=== PATIENT | male | born 1970 | race Caucasian/White ===

== ENCOUNTER 2018-10-28 22:14 | Emergency (ER) | payer OTHER, SELFPAY ==
[2018-10-28 22:15] VITALS: BP 141/83; PULSE 105; RESP 16; TEMP 36.6; O2SAT 97; BMI 28.8
--- NOTE | 2018-10-28 23:03 | ED.DCSUM_ITS ---
- ER Visit Summary Date of Service: 10/28/18 Chief Complaint: Back pain History of Present Illness: The patient is a 48 M who presents with back pain. He has a history of prior similar symptoms. He reports a history of 2 slipped disks. He states his back pain is been increased today. He denies any fall injury increased activity. His pain is similar in character and location to previously but is worse. He states sometimes he feels like his left leg is giving out. He does have radiation into bilateral buttocks and down to the foot on the left side. He complains of some numbness and tingling in the left toes he has a history of prior similar symptoms only though he states this does seem to be getting worse he denies any fevers abdominal pain urinary retention or fecal incontinence. He has had prior epidural injections but no other prior back surgeries. Physical Examination: Heart rate 105 vitals otherwise normal No distress Heart regular rhythm slightly tachycardic Lungs are clear Abdomen soft Normal inspection of the back nontender Negative straight leg raise supine bilaterally Normal strength and sensation of the lower extremities normal sensation to light touch easily palpable and symmetric dorsalis pedis pulses flexion, plantarflexion, extensor hallucis longus Test Results: Not indicated Emergency Department Course and Treatment: Patient presents with lumbar radiculopathy. He has normal strength and sensation of this time. I do not see any signs or symptoms of acute surgical pathology such as cauda equina syndrome or epidural abscess. I do not see an indication for emergent imaging. We will treat supportively with prednisone and he was also given a prescription for Percocet. He was advised on supportive care. He understands to return for new or worsening symptoms and will otherwise follow-up as an outpatient. Treatment Plan: [] Disposition: Discharge Impression: Lumbar radiculopathy This note was generated with [employer] dictation software. It may contain incorrect words, spelling, and punctuation that were not noted in review of the chart prior to signing ED Disposition - Plan for ED Patient: Referrals: Devika Cabrera MD [Primary Care Provider] -
--- NOTE | 2018-10-28 23:06 | ED.DEP ---
ED Disposition - Plan for ED Patient: Instructions: ED Sciatica Prescriptions: Oxycodone HCl/Acetaminophen [Percocet 5/325] 1 tab PO Q6H PRN PRN 3 Days #12 tab PRN Reason: Pain predniSONE tablet 60 mg PO DAILY #15 tab Referrals: Devika Cabrera MD [Primary Care Provider] -
[2018-10-28] MEDS: oxyCODONE 5 MG Tablet PO (23:18)
== END 2018-10-28 23:21 | disposition home or self-care (01) ==
LOC: ED 23:05
PROVIDERS: Emergency Provider Emergency Medicine; Family Provider Internal Medicine; PCP Internal Medicine
DX: M54.16 Radiculopathy, lumbar region (principal); G40.909 Epilepsy, unspecified, not intractable, without status epilepticus; Z72.0 Tobacco use; Z79.899 Other long term (current) drug therapy
CPT/HCPCS: 99283

== ENCOUNTER 2018-11-12 11:05 | Emergency (ER) | payer OTHER, SELFPAY ==
[2018-11-12 11:05] VITALS: BP 161/90; PULSE 94; RESP 16; TEMP 36.6; O2SAT 98; BMI 29.0
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
[2018-11-12] MEDS: morphine 10 MG/ML Syringe IM (11:57)
[2018-11-12] MEDS: diazePAM 5 MG Tablet PO (11:57)
[2018-11-12] MEDS: predniSONE 20 MG Tablet 60 MG PO (11:58)
--- NOTE | 2018-11-12 13:25 | MRI_ITS ---
STUDY: MRI LUMBAR SPINE WITHOUT CONTRAST REASON FOR EXAM: Male, 48 years old. Low back pain with involvement of both lower extremities TECHNIQUE: Standardized fat and water weighted pulse sequences were obtained in the sagittal and axial planes. COMPARISON: None FINDINGS: T12-L1: Normal endplates. Normal disc height, hydration and morphology. Normal bilateral facet joints. Normal central canal and bilateral lateral recesses. Normal bilateral intervertebral neural foramina. Normal lumbar lordosis. There is no substantial scoliosis. Normal conus medullaris that terminates at L1 L1-2: Minor endplate spurring.. Normal disc height, hydration and morphology. Normal bilateral facet joints. Normal central canal and bilateral lateral recesses. Normal bilateral intervertebral neural foramina. L2-3: Normal endplates. Normal disc height, hydration and small broad-based central/right paracentral disc protrusion. Normal bilateral facet joints. Normal central canal and bilateral lateral recesses. Normal bilateral intervertebral neural foramina. L3-4: Normal endplates narrowed disc space with desiccation of the disc and minor annular bulge in association with prominent broad-based central/right paracentral disc extrusion with inferior migration of disc fragment.. Normal facet joints. Mild to moderate narrowing of the central canal. Moderate to severe bilateral recess and right subarticular stenosis. Mild bilateral neural foraminal encroachment Mild bilateral neural foraminal encroachment. L4-5: Normal endplates. Normal disc height, desiccation and tiny central disc protrusion. Normal bilateral facet joints. Normal central canal and bilateral recesses. Normal bilateral neuroforamina. L5-S1: Normal endplates. Normal disc height, hydration and morphology. Normal bilateral facet joints. Normal central canal and bilateral lateral recesses. Normal bilateral intervertebral neural foramina. Normal visualized sacral ala. Normal visualized paraspinous soft tissue structures. MRI/Spine Lumbar (Routine) IMPRESSION: No evidence for acute fracture or subluxation. Moderate to severe spinal stenosis greater on the right at L3-4 secondary to large broad-based central/right paracentral disc extrusion with inferior migration of disc fragment Small broad-based central/right paracentral disc protrusion at L2-3 without significant spinal stenosis Tiny central disc protrusion at L5-S1 without spinal stenosis Electronically Signed: Jeff Adams MD at 16:26 EST , Service support ,
[2018-11-12] MEDS: Morphine 4 MG/ML Syringe IV (14:00)
[2018-11-12] MEDS: Ketorolac 30 MG/ML Syringe IV (14:00)
[2018-11-12 14:02] LABS: Absolute Neutrophil Count 12.5 X10^3/uL (2.0-7.7); Basophil# 0.01 X10^3/uL; Basophil% 0.1 % (0-1); Eosinophil# 0.04 X10^3/uL; Eosinophils% 0.2 % (0-5); Hemoglobin 15.3 g/dl (13.0-16.5); Lymphocyte % 19.4 % (19-41); Mean Corp Hgb Conc 32.6 g/gl (32-36); Mean Corpuscular Hgb 32.6 pg (27.0-32.0); Mean Corpuscular Volume 100.2 fL (80-94); Monocyte# 0.65 X10^3/uL; Monocyte% 3.9 % (0-10); Neutrophil # 12.51 X10^3/uL (2.7-7.7); Neutrophil % 75.8 % (47-70); Platelet Count 241 K/mm3 (150-450); RBC Distribution Width CV 14.3 % (11.6-14.6); RBC Distribution Width SD 52.2 fl (35.1-43.9); Red Blood Count 4.69 M/mm3 (4.6-6.2); White Blood Count 16.5 K/mm3 (4.4-11.0)
[2018-11-12 14:05] LABS: POSITIVE COUNT NO; POSITIVE DIFFERENTIAL NO; POSITIVE MORPHOLOGY NO
[2018-11-12 14:12] LABS: Anion Gap 8 (5-15); BUN 22 mg/dL (7-18); BUN/Creat Ratio 20.2 RATIO (10-20); Calcium,Total 8.9 mg/dL (8.5-10.1); Chloride 105 mmol/L (98-107); Creatinine, Serum 1.09 mg/dL (0.70-1.30); EST Glomerular Filtration Rate 77 mL/min (>60); Est Glom Filt Rate - Afr Amer 93 mL/min (>60); Estimated Creatinine Clearance 93.66 ml/min; Glucose 96 mg/dL (74-106); Potassium 4.1 mmol/L (3.5-5.1); Sodium Level 144 mmol/L (136-145)
[2018-11-12 16:09] VITALS: BP 164/79; PULSE 70; RESP 16; O2SAT 97
[2018-11-12] MEDS: HYDROmorphone 1 MG/ML Syringe IV (16:32)
[2018-11-12 17:13] VITALS: BP 176/99
== END 2018-11-12 17:20 | disposition home or self-care (01) ==
PROVIDERS: Emergency Provider Emergency Medicine; Family Provider Internal Medicine; PCP Internal Medicine
DX: M51.16 Intervertebral disc disorders with radiculopathy, lumbar region (principal); G40.909 Epilepsy, unspecified, not intractable, without status epilepticus; Z72.0 Tobacco use; Z88.6 Allergy status to analgesic agent; Z79.899 Other long term (current) drug therapy
CPT/HCPCS: 72148; 80048; 85025; 96372; 96374; 96375; 99283; A4216

== ENCOUNTER → 2019-02-13 09:18 | Outpatient (CLI) | payer OTHER, SELFPAY ==
--- NOTE | 2019-02-13 10:00 | MRI_ITS ---
STUDY: MRI LUMBAR SPINE WITH AND WITHOUT CONTRAST REASON FOR EXAM: Male, 48 years old. LBP, PRIOR MICRODISCECTOMY at L2-L4, November 2018. LEFT hip and quad radiculopathy and numbness. TECHNIQUE: Standardized fat and water weighted pulse sequences were obtained in the sagittal and axial planes. 20 IV Dotarem was administered for the contrast portion of the examination. COMPARISON: 12 November 2018 MRI FINDINGS: T12-L1: Normal endplates. Normal disc height, hydration and morphology. Normal bilateral facet joints. Normal central canal and bilateral lateral recesses. Normal bilateral intervertebral neural foramina. Normal lumbar lordosis. There is no substantial scoliosis. Normal conus medullaris that terminates at the L1/2 level. L1-2: Disc desiccation and dehydration is present with no significant spinal canal narrowing or foraminal narrowing. L2-3: Minimal disc protrusion at this level with mild epidermal lipomatosis resulting in mild spinal canal narrowing at this level without associated foraminal narrowing. L3-4: There is a demonstrated left side disc extrusion extending superiorly causing a moderate to severe lateral recess narrowing without extension into the foramina with no evidence of internal enhancement as seen on axial series 5 image 16. L4-5: The level of L4 is posterior laminectomy changes with expected postsurgical likely scarring enhancement without focal fluid collection. There is noted disc desiccation without significant disc bulge, spinal canal narrowing or foraminal narrowing. L5-S1: Normal endplates. Normal disc height, hydration and morphology. Normal bilateral facet joints. Normal central canal and bilateral lateral recesses. Normal bilateral intervertebral neural foramina. Normal visualized sacral ala. Normal visualized paraspinous soft tissue structures. MRI/Spine Lumbar W/WO Contrast IMPRESSION: 1. L3/4 left paracentral likely disc extrusion extending superiorly (series 5 image 16) resulting in moderate to severe left lateral recess narrowing, clinically correlate for descending L4 left nerve root radiculopathy. 2. Noted posterior laminectomy changes at the level of L4 with expected postsurgical changes without evidence of fluid collection or abscess. Additional degenerative changes as above. Electronically Signed: Vernon Grimes DO at 11:35 EDT , Service support ,
== END ==
PROVIDERS: Family Provider Internal Medicine; PCP Internal Medicine; Referring Provider Orthopaedic Surgery Orthopaedic Surgery of the Spine; Visit Provider Orthopaedic Surgery Orthopaedic Surgery of the Spine
DX: M54.16 Radiculopathy, lumbar region (principal); M51.26 Other intervertebral disc displacement, lumbar region; Z98.890 Other specified postprocedural states
CPT/HCPCS: 72158; A9575

== ENCOUNTER → 2019-10-07 11:05 | Outpatient (CLI) | payer OTHER, SELFPAY ==
[2019-10-01 18:00] LABS: Creatinine, Serum 1.13 mg/dL (0.70-1.30); EST Glomerular Filtration Rate 73 mL/min (>60); Est Glom Filt Rate - Afr Amer 89 mL/min (>60)
--- NOTE | 2019-10-07 11:12 | MRI_ITS ---
STUDY: MRI LUMBAR SPINE WITH AND WITHOUT CONTRAST REASON FOR EXAM: Male, 49 years old. DDD PRIOR LUMBAR SURGERY -- pain low back and left leg x 18 months, surgery lumbar x 2 11/2018 and 04/23/19, pain never improved TECHNIQUE: Standardized fat and water weighted pulse sequences were obtained in the sagittal and axial planes. dotarem 20ml iv was administered for the contrast portion of the examination. COMPARISON: 02/13/2019 FINDINGS: T12-L1: Normal endplates. Normal disc height, hydration and morphology. Normal bilateral facet joints. Normal central canal and bilateral lateral recesses. Normal bilateral intervertebral neural foramina. Normal lumbar lordosis. There is no substantial scoliosis. Normal conus medullaris that terminates at the L1. L1-2: Disc desiccation and loss of disc height but no disc protrusion or spinal stenosis or neural foraminal stenosis. L2-3: No change in a small central disc protrusion which produces mild spinal stenosis but no neural foraminal stenosis. L3-4: Status post posterior decompression. No change in the 2 mm retrolisthesis of L3 on L4 with a mild broad disc protrusion which produces mild spinal stenosis and mild bilateral neural foraminal stenosis. Associated Modic type I endplate changes. L4-5: No change in the mild broad disc protrusion which produces mild spinal stenosis but no neural foraminal stenosis. L5-S1: Normal endplates. Normal disc height, hydration and morphology. Normal bilateral facet joints. Normal central canal and bilateral lateral recesses. Normal bilateral intervertebral neural foramina. Normal visualized sacral ala. Normal visualized paraspinous soft tissue structures. Enhancing scar tissue at the site of posterior decompression at L3/L4 with encasement of the posterior thecal sac but no mass effect or nerve root encasement. However, there is some faint enhancement of the left L3 nerve root. MRI/Spine Lumbar W/WO Contrast IMPRESSION: Postsurgical changes at L3/L4 with some enhancing scar tissue posterior to the thecal sac inferiorly enhancement of the left L3 nerve root. However, no severe spinal stenosis or neural foraminal stenosis. Electronically Signed: Delon Tao MD at 16:49 EST Tel , Service support ,
== END ==
PROVIDERS: Family Provider Internal Medicine; PCP Internal Medicine; Referring Provider Orthopaedic Surgery; Visit Provider Orthopaedic Surgery
DX: N28.9 Disorder of kidney and ureter, unspecified (principal)
CPT/HCPCS: 36415; 72158; 82565; A9575

== ENCOUNTER 2020-01-24 09:17 | Emergency (ER) | payer OTHER, SELFPAY ==
[2020-01-24 09:18] VITALS: BP 159/93; PULSE 86; RESP 16; TEMP 36.7; BMI 29.0
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
[2020-01-24] MEDS: Diphth,Pertuss(Acell),Tet Vac 0.5 ML Vial IM (11:30)
[2020-01-24] MEDS: Cephalexin 250 MG Capsule 500 MG PO (11:36)
== END 2020-01-24 11:59 | disposition home or self-care (01) ==
LOC: ED 11:50
PROVIDERS: Emergency Provider Emergency Medicine; PCP Internal Medicine
DX: T23.292A Burn of second degree of multiple sites of left wrist and hand, initial encounter (principal); T20.29XA Burn of second degree of multiple sites of head, face, and neck, initial encounter; T24.232A Burn of second degree of left lower leg, initial encounter; T24.231A Burn of second degree of right lower leg, initial encounter; T31.0 Burns involving less than 10% of body surface; W40.1XXA Explosion of explosive gases, initial encounter; Y93.89 Activity, other specified; Y92.9 Unspecified place or not applicable; Z72.0 Tobacco use
CPT/HCPCS: 90471; 90715; 99283

== ENCOUNTER 2020-06-01 19:31 | Inpatient (IN) | payer OTHER, SELFPAY ==
[2020-06-01 19:32] VITALS: BP 115/73; PULSE 86; RESP 18; TEMP 36.4; O2SAT 96; BMI 29.0
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
[2020-06-01 20:04] LABS: Absolute Lymphocyte Count 1.71 X10^3/uL (0.83-4.51); Absolute Neutrophil Count 4.5 X10^3/uL (2.0-7.7); Basophil# 0.03 X10^3/uL; Basophil% 0.4 % (0-1); Eosinophil# 0.17 X10^3/uL; Eosinophils% 2.4 % (0-5); Hematocrit 40.8 % (40-54); Hemoglobin 13.9 g/dL (13.0-16.5); Lymphocyte # 1.71 X10^3/ul (4.0); Lymphocyte % 23.9 % (19-41); Mean Corp Hgb Conc 34.1 g/dL (32-36); Mean Corpuscular Hgb 33.3 pg (27.0-32.0); Mean Corpuscular Volume 97.8 fL (80-94); Mean Platelet Vol. 9.8 fl (6.2-12.0); Monocyte# 0.69 X10^3/uL; Monocyte% 9.7 % (0-10); NRBC Flagged by Analyzer 0 % (0-5); Neutrophil # 4.52 X10^3/uL (2.7-7.7); Neutrophil % 63.3 % (47-70); Platelet Count 272 K/mm3 (150-450); RBC Distribution Width CV 12.9 % (11.6-14.6); Red Blood Count 4.17 M/mm3 (4.6-6.2); White Blood Count 7.1 K/mm3 (4.4-11.0)
[2020-06-01 20:20] LABS: Anion Gap 5 (5-15); BUN 15 mg/dL (7-18); BUN/Creat Ratio 17.3 RATIO (10-20); Calcium,Total 9.1 mg/dL (8.5-10.1); Chloride 112 mmol/L (98-107); Creatinine, Serum 0.87 mg/dL (0.70-1.30); EST Glomerular Filtration Rate 99 mL/min (>60); Est Glom Filt Rate - Afr Amer 120 mL/min (>60); Glucose 117 mg/dL (74-106); Potassium 3.7 mmol/L (3.5-5.1); Sodium Level 144 mmol/L (136-145); Uric Acid 6.6 mg/dL (3.5-7.2)
[2020-06-01 20:48] LABS: Lactic Acid 0.5 mmol/L (0.4-1.9)
[2020-06-01 21:32] VITALS: BP 134/74; PULSE 71; RESP 17; O2SAT 97
--- NOTE | 2020-06-01 22:00 | PCM.HP.STD ---
Problem List (1) Cellulitis Status: Acute Qualifiers: Site of cellulitis: extremity Site of cellulitis of extremity: lower extremity Laterality: right Qualified Code(s): L03.115 - Cellulitis of right lower limb (2) Laceration of right lower extremity Status: Acute Qualifiers: Encounter type: subsequent encounter Qualified Code(s): S81.811D - Laceration without foreign body, right lower leg, subsequent encounter (3) Seizure disorder Status: Chronic (4) Tobacco use Status: Chronic (5) Asthma Status: Chronic Qualifiers: Asthma severity: unspecified severity Asthma persistence: unspecified Asthma complication type: unspecified Qualified Code(s): J45.909 - Unspecified asthma, uncomplicated History of Present Illness Date of Admission: 06/01/20 Chief Complaint: RLE wound, pain, erythema. The patient is a 50 y/o M w/ PMHx: Tobacco use, Obesity, Asthma not on regimen, Seizure disorder who presents to the [facility] ED on 06/01/20 with history of fall on 05/21/20 slipping on his boat and striking a piece of metal on the ladder with a laceration of the right anterior tibia with urgent care evaluation, placed on abx (keflex) at that time with ongoing self administration of bacitracin ointment additionally with now onset over the last 48 hours worsening discomfort described as a sharp throbbing aching, worse with movement of the leg from resting to lowered position specifically, rated 8/10 in severity with ongoing mild brown drainage from the wound but new onset erythema extending from R ankle-foot medially to RLE distal to wound prompting ED presentation. He denies any associated fever or chills. In the ED work-up included T 97.6, heart rate 86, BP 115/73, respiratory rate 18, 96% on room air, CBC with WBC 7.1, hemoglobin 13.9, platelet 272 without market shift, BMP with glucose 117 otherwise unremarkable, uric acid 6.6, LA 0.5, wound Cx pending per ED, blood culture x2 requested per ED. in the ED patient administered Unasyn, normal saline, vancomycin. Past Medical History Past Medical History (Chronic Problems): Chronic Problems Seizure disorder (Chronic) Tobacco use (Chronic) Asthma (Chronic) Allergies No Known Allergies Allergy (Verified 06/01/20 19:36) Home Medications: Ambulatory Orders Medication Instructions Recorded Divalproex (ER) [Depakote ER] 250 mg PO 5X/DAY 10/28/18 Cephalexin [Keflex] 500 mg PO Q6 #40 cap 01/24/20 Surgical History: - - Lumbar back surgery x2. Psychiatric History: No pertinent psych hx Lives: Spouse/ Significant Other Smoking Status: Current some day smoker - Patient with ongoing 1/2 pack/day cigarette tobacco usage. Tobacco Use: Cigarettes Alcohol: Occasional Drugs: None - *Family History Maternal History Items: Cancer - Patient with maternal family history of breast cancer. Paternal History Items: - - Patient denies any market paternal family history including heart disease, diabetes, cancer. Review of Systems Constitutional: Reports: Fatigue. Denies: Anorexia, Chills, Fever, Malaise, Weakness, Weight Change HEENT: Denies: Head Aches, Sinus Congestion, Sinus Drainage Cardiovascular: Denies: Chest Pain, Palpitations Respiratory: Denies: Cough, Shortness of breath at rest, Sputum production Gastrointestinal: Denies: Abdominal Pain, Nausea, Vomiting Genitourinary: Denies: Dysuria Musculoskeletal: Reports: Joint Pain, Joint stiffness, Joint swelling, Joint Tenderness, Leg Pain Skin: Reports: Skin Changes, Wounds. Denies: Rash Neurological: Reports: Seizures. Denies: Focal weakness, Numbness, Tingling Psychiatric: Denies: Anxiety, Depression, Homicidal Ideations, Suicidal Ideations Hematologic/ Lymphatic: Denies: Easy Bruising, Easy Bleeding VTE Information - Inpt Only VTE Present on Admission: No VTE Mechan Device Prophylaxis: SCD's VTE Pharm Prophylaxis ordered?: Yes Patient Problems: Active and Suspected Problems Cellulitis (Acute) Laceration of right lower extremity (Acute) Subjective: Patient seated upright in the ED bed, mildly fatigued otherwise no acute distress. Objective: Physical Examination: General: awake, alert, oriented x 3 and cooperative, seated upright in the ED bed in no apparent distress. Skin: normal color, turgor, no icterus, cyanosis except noted right lower extremity anterior rock laceration, mild serosanguineous brown drainage noted, no foul odor, no specific periwound erythema but erythema on the inner aspect of the right lower extremity specifically near the ankle with some edema to the region with redness extending upward just distal to the wound medially with tenderness palpation, increased warmth to touch compared to left lower extremity. HEENT: AT/NC, EOMI, PERRLA, mildly dry MM, no carotid bruits or JVD noted. Lungs: CTA bilaterally, moderate effort, mild decrease BL bases, no rales, ronchi or wheezing. Heart: Regular rate and rhythm; no gallop, rub audible. Abdomen: soft, NTTP, ND, normal BS, no HSM. Extremities: no cyanosis, clubbing, see skin, mild ankle to distal rock edema, not pitting. Neurological: patient awake, alert, oriented x 3; cognitive function intact; pupils equally reactive to light and accomodation; cranial nerves II-XII grossly normal, moving all 4 extremities, no focal deficits, strength moderately global decrease secondary to acute complaints. Psychiatric: affect appears fatigued otherwise normal, no acute evidence of depressive or anxiety feelings. - Physical Exam Vitals/I&O's: Vital Signs Temp Pulse Resp BP Pulse Ox 97.6 F L 86 18 115/73 96 06/01/20 19:32 06/01/20 19:32 06/01/20 19:32 06/01/20 19:32 06/01/20 19:32 Oxygen Delivery Method Room Air Weight: 220 lb Body Mass Index (BMI) 29.0 Intake and Output for Last 24 Hours 05/30/20 05/31/20 06/01/20 23:59 23:59 23:59 Intake Total 112 / 112 Balance 112 / 112 Laboratory Results 06/01/20 19:50: WBC 7.1, RBC 4.17 L, Hgb 13.9, Hct 40.8, MCV 97.8 H, MCH 33.3 H, MCHC 34.1, RDW Std Deviation 46.0 H, RDW Coeff of Yodit 12.9, Plt Count 272, MPV 9.8, Immature Gran % (Auto) 0.300, Neut % (Auto) 63.3, Lymph % (Auto) 23.9, [place] % (Auto) 9.7, Eos % (Auto) 2.4, Baso % (Auto) 0.4, Absolute Neuts (auto) 4.5, Absolute Lymphs (auto) 1.71, Nucleated RBC % 0 06/01/20 19:50: Sodium 144, Potassium 3.7, Chloride 112 H, Carbon Dioxide 27.0, Anion Gap 5, BUN 15, Creatinine 0.87, Estim Creat Clear Calc 114.80, Est GFR (MDRD) Af Amer 120, Est GFR (MDRD) Non-Af 99, BUN/Creatinine Ratio 17.3, Glucose 117 H, Uric Acid 6.6, Calcium 9.1 06/01/20 20:04: Lactic Acid 0.5 Current Medications Vancomycin HCl 1,500 mg/ (Sodium Chloride) 530 mls @ 250 mls/hr IV X1 ONE Stop: 06/01/20 22:07 Last Admin: 06/01/20 20:14 Dose: 250 mls/hr Documented by: Sodium Chloride () 250 mls @ 15 mls/hr IV .[id number] PRN PRN Reason: Saline Flush Last Admin: 06/01/20 20:19 Dose: 15 mls/hr Documented by: Sodium Chloride () 250 mls @ 15 mls/hr IV .[id number] PRN PRN Reason: Additional IVPB Infusion Last Admin: 06/01/20 20:19 Dose: 15 mls/hr Documented by: Assessment/Plan All Active Problems Cellulitis (Acute) Laceration of right lower extremity (Acute) The patient is a 50 y/o M w/ PMHx: Tobacco use, Obesity, Asthma not on regimen, Seizure disorder who presents to the [facility] ED on 06/01/20 with history of fall on 05/21/20 slipping on his boat and striking a piece of metal on the ladder with a laceration of the right anterior tibia with now onset over the last 48 hours worsening discomfort described as a sharp throbbing aching, worse with movement of the leg from resting to lowered position specifically, ongoing brown drainage from the wound but new onset erythema extending from R ankle-foot medially to RLE distal to wound. 1. Right lower extremity extremity Cellulitis with Recent Anterior Tibial Wound, Failed outpatient management/antibiotic therapy: Will admit to [facility], given history and mechanism of injury will maintain on Unasyn therapy as well as vancomycin with de-escalation off of MRSA screen negative and may consider further de-escalation pending wound culture, will request addition of MRSA wound PCR to ED initiated wound Cx, plan repeat CBC in AM, continue affected extremity elevation above heart when seated and in bed, monitor erythema outline with VS checks, obtain duplex ultrasound. 2. Seizure disorder: We will continue patient home Depakote regimen. 3. Tobacco Abuse: Encouraged cessation, inpatient consultation per RT, NR if desired. 4. Chronic asthma: Not on regimen, encouraged tobacco cessation, PRN albuterol if necessary, I-S. 5. DVT prophylaxis: SCDs if able to tolerate BL, Lovenox. Inpatient E&M: 05222 Init Hosp L3
[2020-06-01 22:19] VITALS: BP 148/88; PULSE 74; RESP 17; TEMP 36.7; O2SAT 98
[2020-06-01 23:20] VITALS: BP 142/75; PULSE 80; RESP 16; TEMP 37.5; O2SAT 96
--- NOTE | 2020-06-01 23:29 | VDLE_ITS ---
Reason For Study: Swelling RIGHT GSV is normal. CFV is compressible, spontaneous, phasic, competent and demonstrates normal augmentation. FV is compressible, spontaneous, phasic, competent and demonstrates normal augmentation. POP V is compressible, spontaneous, phasic, competent and demonstrates normal augmentation. T/P Trunk is compressible. PTV is compressible. RT PerV is compressible. Procedure Exam performed portable in patient room. A preliminary report was called and/or faxed to [facility]. Interpretation Summary There is no evidence of right lower extremity deep vein thrombosis. Right great saphenous vein appears patent and compressible segmentally. Ordering Physician: Hillary Freitas Referring Physician: Devika Cabrera M.D. Performed By: Jennifer Kauffman RVT
[2020-06-01 23:34] VITALS: BMI 27.6; BMI 29.0
[2020-06-01 23:53] LABS: Magnesium 2.3 mg/dL (1.6-2.6)
[2020-06-02] VITALS (7 sets, daily range): BP systolic 127–131; BP diastolic 61–83; PULSE 60–71; RESP 14–18; TEMP 36.4–36.8; O2SAT 95–99
--- NOTE | 2020-06-02 00:03 | PCM.RX.CS ---
Consult Pharmacy has been consulted to manage selected antiobiotic: Vancomycin Type of Consult: New start Suspected Infection: Skin/Soft tissue Labs: Sodium 144 mmol/L (136-145) 06/01/20 19:50 Potassium 3.7 mmol/L (3.5-5.1) 06/01/20 19:50 Chloride 112 mmol/L (98-107) H 06/01/20 19:50 Carbon Dioxide 27.0 mmol/L (21.0-32.0) 06/01/20 19:50 Anion Gap 5 (5-15) 06/01/20 19:50 BUN 15 mg/dL (7-18) 06/01/20 19:50 Creatinine 0.87 mg/dL (0.70-1.30) 06/01/20 19:50 Est GFR (MDRD) Af Amer 120 mL/min (>60) 06/01/20 19:50 Est GFR (MDRD) Non-Af 99 mL/min (>60) 06/01/20 19:50 BUN/Creatinine Ratio 17.3 RATIO (10-20) 06/01/20 19:50 Glucose 117 mg/dL (74-106) H 06/01/20 19:50 Weight used for dosin kg Estimated Creatinine Clearance: 114.8 Goal Trough: 10-15 mcg/mL Pharmacy Plan for Drug Dosing: Pharmacy Service will continue to monitor and adjust dosing as required. Medications Vancomycin HCl 1,500 mg/ (Sodium Chloride) 530 mls @ 250 mls/hr IV Q12H AFSHIN Discontinued Medications Vancomycin HCl 1,500 mg/ (Sodium Chloride) 530 mls @ 250 mls/hr IV X1 ONE Stop: 06/01/20 22:07 Last Admin: 06/01/20 22:22 Dose: Infused Documented by: Follow-Up Labs: Trough Vancomycin Labs to be done on [date and time ordered]: 06/03 @ 0940
[2020-06-02] MEDS: 0.9% Normal Saline 1,000 ML 100 ML IV ×2 (00:17→14:33)
[2020-06-02] MEDS: Divalproex Sodium 250 MG Tablet 500 MG PO ×2 (00:28→20:45)
[2020-06-02 03:03] LABS: M R Staph aureus DNA By PCR Negative (Negative); Probe Check PASS; Specimen Processing Control PASS; Staph aureus DNA By PCR NEGATIVE (Negative)
[2020-06-02 06:22] LABS: Absolute Lymphocyte Count 2.26 X10^3/uL (0.83-4.51); Absolute Neutrophil Count 3.3 X10^3/uL (2.0-7.7); Basophil# 0.05 X10^3/uL; Basophil% 0.8 % (0-1); Eosinophil# 0.21 X10^3/uL; Eosinophils% 3.2 % (0-5); Hematocrit 38.9 % (40-54); Hemoglobin 12.8 g/dL (13.0-16.5); Lymphocyte # 2.26 X10^3/ul (4.0); Lymphocyte % 34.3 % (19-41); Mean Corp Hgb Conc 32.9 g/dL (32-36); Mean Corpuscular Hgb 32.2 pg (27.0-32.0); Mean Platelet Vol. 9.5 fl (6.2-12.0); Monocyte# 0.72 X10^3/uL; Monocyte% 10.9 % (0-10); NRBC Flagged by Analyzer 0 % (0-5); Neutrophil # 3.32 X10^3/uL (2.7-7.7); Neutrophil % 50.5 % (47-70); Platelet Count 259 K/mm3 (150-450); RBC Distribution Width CV 13.1 % (11.6-14.6); RBC Distribution Width SD 47.6 fl (35.1-43.9); Red Blood Count 3.97 M/mm3 (4.6-6.2); White Blood Count 6.6 K/mm3 (4.4-11.0)
[2020-06-02 07:13] LABS: ALB/GLOB Ratio 1.1 RATIO (0.9-2.4); AST(SGOT) 16 U/L (15-37); Alanine Aminotransfer ALT/SGPT 13 U/L (16-61); Albumin, Serum 3.3 g/dL (3.2-5.0); Alkaline Phosphatase 94 U/L (45-117); Anion Gap 2 (5-15); BUN 13 mg/dL (7-18); BUN/Creat Ratio 15.4 RATIO (10-20); Calcium,Total 8.6 mg/dL (8.5-10.1); Chloride 114 mmol/L (98-107); Creatinine, Serum 0.85 mg/dL (0.70-1.30); EST Glomerular Filtration Rate 102 mL/min (>60); Est Glom Filt Rate - Afr Amer 123 mL/min (>60); Globulin 2.9 g/dL (2.2-4.2); Glucose 95 mg/dL (74-106); Potassium 3.8 mmol/L (3.5-5.1); Protein, Total 6.2 g/dL (6.4-8.2); Sodium Level 145 mmol/L (136-145)
--- NOTE | 2020-06-02 07:39 | PCM.PN.HOSP ---
Patient Problems: Active and Suspected Problems Cellulitis (Acute) Laceration of right lower extremity (Acute) Vitals/I&O's: Vital Signs Temp Pulse Resp BP Pulse Ox 97.8 F 71 18 127/61 H 96 06/02/20 06:05 06/02/20 06:05 06/02/20 06:05 06/02/20 06:05 06/02/20 06:05 Oxygen Delivery Method Room Air Weight: 209 lb 9.6 oz Body Mass Index (BMI) 27.6 Intake and Output for Last 24 Hours 05/31/20 06/01/20 06/02/20 23:59 23:59 23:59 Intake Total 719.0 / 719.0 1174 / 1174 Output Total 450 / 450 Balance 719.0 / 719.0 724 / 724 Laboratory Results 06/01/20 19:50: WBC 7.1, RBC 4.17 L, Hgb 13.9, Hct 40.8, MCV 97.8 H, MCH 33.3 H, MCHC 34.1, RDW Std Deviation 46.0 H, RDW Coeff of Yodit 12.9, Plt Count 272, MPV 9.8, Immature Gran % (Auto) 0.300, Neut % (Auto) 63.3, Lymph % (Auto) 23.9, [place] % (Auto) 9.7, Eos % (Auto) 2.4, Baso % (Auto) 0.4, Absolute Neuts (auto) 4.5, Absolute Lymphs (auto) 1.71, Nucleated RBC % 0 06/01/20 19:50: Sodium 144, Potassium 3.7, Chloride 112 H, Carbon Dioxide 27.0, Anion Gap 5, BUN 15, Creatinine 0.87, Estim Creat Clear Calc 114.80, Est GFR (MDRD) Af Amer 120, Est GFR (MDRD) Non-Af 99, BUN/Creatinine Ratio 17.3, Glucose 117 H, Uric Acid 6.6, Calcium 9.1 06/01/20 19:50: Magnesium 2.3 06/01/20 19:50: S.aureus Protein A PCR NEGATIVE, MRSA (PCR) Negative 06/01/20 20:04: Lactic Acid 0.5 06/02/20 06:10: WBC 6.6, RBC 3.97 L, Hgb 12.8 L, Hct 38.9 L, MCV 98.0 H, MCH 32.2 H, MCHC 32.9, RDW Std Deviation 47.6 H, RDW Coeff of Yodit 13.1, Plt Count 259, MPV 9.5, Immature Gran % (Auto) 0.300, Neut % (Auto) 50.5, Lymph % (Auto) 34.3, [place] % (Auto) 10.9 H, Eos % (Auto) 3.2, Baso % (Auto) 0.8, Absolute Neuts (auto) 3.3, Absolute Lymphs (auto) 2.26, Nucleated RBC % 0 06/02/20 06:10: Sodium 145, Potassium 3.8, Chloride 114 H, Carbon Dioxide 29.0, Anion Gap 2 L, BUN 13, Creatinine 0.85, Estim Creat Clear Calc 117.50, Est GFR (MDRD) Af Amer 123, Est GFR (MDRD) Non-Af 102, BUN/Creatinine Ratio 15.4, Glucose 95, Calcium 8.6, Total Bilirubin 0.20, AST 16, ALT 13 L, Alkaline Phosphatase 94, Total Protein 6.2 L, Albumin 3.3, Globulin 2.9, Albumin/Globulin Ratio 1.1 Current Medications Acetaminophen (Tylenol) 650 mg PO Q6H PRN PRN PRN Reason: Pain Score 1-10/Temp > 100.7 F Al Hydroxide/Mg Hydroxide (Mylanta Ii) 30 ml PO Q6H PRN PRN PRN Reason: Gastric Burning Albuterol Sulfate (Ventolin Aerosols) 2.5 mg INHALATION Q2H PRN PRN PRN Reason: Dyspnea, wheezing Divalproex Sodium (Depakote) 750 mg PO 0800 AFSHIN Divalproex Sodium (Depakote) 500 mg PO QHS [facility] Last Admin: 06/02/20 00:28 Dose: 500 mg Documented by: Enoxaparin Sodium (Lovenox) 40 mg SC DAILY [facility] Famotidine (Pepcid) 20 mg PO BID [facility] Guaifenesin (Robitussin) 20 ml PO Q4H PRN PRN PRN Reason: COUGH Hydralazine HCl (Apresoline Iv) 10 mg IV Q4H PRN PRN PRN Reason: SBP > 160 Sodium Chloride () 1,000 mls @ 100 mls/hr IV .Q10H [facility] Last Admin: 06/02/20 00:17 Dose: 100 mls/hr Documented by: Vancomycin IV Pharmacy to Dose (1 ea/ Sodium Chloride) 500 mls @ 250 mls/hr IV X1 PRN; Protocol PRN Reason: Rx to Dose Ampicillin Sodium/Sulbactam (Sodium 3 gm/ Sodium Chloride) 112 mls @ 150 mls/hr IV Q6 [facility] Last Infusion: 06/02/20 06:54 Dose: Infused Documented by: Vancomycin HCl 1,500 mg/ (Sodium Chloride) 530 mls @ 250 mls/hr IV Q12H [facility] Magnesium Hydroxide (Milk Of Magnesia) 30 ml PO DAILY PRN PRN PRN Reason: Constipation Morphine Sulfate () 2 mg IV Q3H PRN PRN PRN Reason: Pain Score 6-10/10 Nutritional Formula (Lactose Free) (Ensure Enlive) 120 ml PO 4X/DAY [facility] Ondansetron HCl (Zofran) 4 mg IV Q8H PRN PRN PRN Reason: NAUSEA/VOMITING Oxycodone HCl (Oxyir) 5 mg PO Q4H PRN PRN PRN Reason: Pain Score 4-5/10 Prochlorperazine Edisylate (Compazine Iv) 5 mg IV Q4H PRN PRN PRN Reason: Breakthrough nausea/vomiting Psyllium Hydrophilic Mucilloid (Metamucil) 1 packet PO DAILY PRN PRN PRN Reason: Constipation Senna/Docusate Sodium (Senokot-S, Sharon-Colace) 2 tablet PO BID PRN PRN PRN Reason: Constipation Temazepam (Restoril) 15 mg PO QHS PRN PRN PRN Reason: INSOMNIA Throat Lozenges (Cepacol Sore Throat Lozenge) 1 lozenge MUCOUS MEM Q2H PRN PRN PRN Reason: SORE THROAT STROKE Vital Signs/Narrative: Vital Signs Temp Pulse Resp BP Pulse Ox 06/02/20 06:05 97.8 F 71 18 127/61 H 96 Medical Necessity - Tobacco Use Smoking Status: Current some day smoker Tobacco Use: Cigarettes Assessment/Plan All Active Problems Cellulitis (Acute) Laceration of right lower extremity (Acute) The patient is a 50 y/o M w/ PMHx: Tobacco use, Obesity, Asthma not on regimen, Seizure disorder who presents to the [facility] ED on 06/01/20 with history of fall on 05/21/20 slipping on his boat and striking a piece of metal on the ladder with a laceration of the right anterior tibia with now onset over the last 48 hours worsening discomfort described as a sharp throbbing aching, worse with movement of the leg from resting to lowered position specifically, ongoing brown drainage from the wound but new onset erythema extending from R ankle-foot medially to RLE distal to wound. 1. Right lower extremity extremity Cellulitis with Recent Anterior Tibial Wound, Failed outpatient management/antibiotic therapy: Will admit to [facility], given history and mechanism of injury will maintain on Unasyn therapy as well as vancomycin with de-escalation off of MRSA screen negative and may consider further de-escalation pending wound culture, will request addition of MRSA wound PCR to ED initiated wound Cx, plan repeat CBC in AM, continue affected extremity elevation above heart when seated and in bed, monitor erythema outline with VS checks, obtain duplex ultrasound. 2. Seizure disorder: We will continue patient home Depakote regimen. 3. Tobacco Abuse: Encouraged cessation, inpatient consultation per RT, NR if desired. 4. Chronic asthma: Not on regimen, encouraged tobacco cessation, PRN albuterol if necessary, I-S. 5. DVT prophylaxis: SCDs if able to tolerate BL, Lovenox.
[2020-06-02] MEDS: Divalproex Sodium 250 MG Tablet 750 MG PO (08:30)
--- NOTE | 2020-06-02 08:55 | RAD_ITS ---
STUDY: X-RAY - RIGHT TIBIA AND FIBULA REASON FOR EXAM: Male, 50 years old. RT LOWER 1/3 LEG LACERATION. CELLULITIS TECHNIQUE: 2 view(s) of the tibia and fibula were obtained. COMPARISON: None. FINDINGS: Normal visualized tibia. Normal visualized fibula. The soft tissue structures are unremarkable. RAD/Tibia & Fibula 2 Views IMPRESSION: Normal x-ray examination of the tibia and fibula. Electronically Signed: [place], at 14:37 EDT , Service support ,
--- NOTE | 2020-06-02 09:12 | NURSING ---
wound photo: right rock
[2020-06-02] MEDS: Famotidine 20 MG Tablet PO ×2 (10:36→20:45)
[2020-06-02] MEDS: Enoxaparin 40 MG/0.4 ML Syringe SC (10:36)
[2020-06-02] MEDS: oxyCODONE 5 MG Tablet PO ×3 (10:45→19:35)
--- NOTE | 2020-06-02 10:50 | CASEMGMT ---
RN YOLANDA Face to Face with patient for initial transition planning/care coordination assessment. RN CM introduced self and role at [facility]. Patient sitting at edge of bed, alert and oriented. Patient willing to participate in assessment and is able to answer all questions appropriately. Care providers, pharmacy, and demographics verified. Patient wishes to discharge home, denies need for home health at this time. Patient states he has no further needs or concerns at this time. CM to follow for discharge planning needs that may arise. PCP: Deborah Specialists: [facility] Pharmacy: [facility] Insurance: [employer] Prescription Benefit: yes Living Will/HPOA: none LNOK: Living Arrangements: Patient lives with in 1 story home with 3 steps and railing. Patient is independent at home. Transportation: self, DME/HHC: Patient denies DME or previous HHC. Disposition Plan: Patient to discharge home with family support and follow-up plans in place. Jennifer BANGURA, RN, CM
--- NOTE | 2020-06-02 14:08 | PCM.PROGNOTE ---
<[employer] - Last Filed: 06/02/20 14:20> Patient Problems: Active and Suspected Problems Cellulitis (Acute) Laceration of right lower extremity (Acute) Subjective: Patient seen and examined. Reports right medial ankle discomfort. Denies fever, chills. - Physical Exam Vitals/I&O's: Vital Signs Temp Pulse Resp BP Pulse Ox 98.2 F 64 14 128/74 H 96 06/02/20 10:33 06/02/20 10:33 06/02/20 10:33 06/02/20 10:33 06/02/20 10:33 Oxygen Delivery Method Room Air Weight: 209 lb 9.601 oz Body Mass Index (BMI) 27.6 Intake and Output for Last 24 Hours 05/31/20 06/01/20 06/02/20 23:59 23:59 23:59 Intake Total 719.0 / 719.0 2657.67 / 2657.67 Output Total 450 / 450 Balance 719.0 / 719.0 2207.67 / 2207.67 General: Alert, Oriented x3, Cooperative HEENT: Atraumatic, PERRLA, EOMI, Normocephalic Neck: Supple, No JVD, Negative Carotid Bruits Lungs: Clear to auscultation, Normal air movement Cardiovascular: Regular rate, No murmurs Abdomen: Bowel Sounds Present, Soft, Non Tender, Non-Distended Extremities: No clubbing, No cyanosis, No edema, Capillary Refill Less than 3 Seconds Skin: No rashes, No breakdown, - - Right rock laceration, right ankle erythema Musculoskeletal: No Tenderness to Palpation of Joints or Extremities Neurological: Cranial nerves II-XII grossly intact, Neuro grossly intact Psych/Mental Status: Normal Affect, Appropriate Microbiology Past 72 Hours 06/01/20 19:50 Wound - Leg, Right Gram Stain - Final 06/01/20 19:50 Wound - Leg, Right Wound Culture - Preliminary No growth-Final to follow Laboratory Results 06/01/20 19:50: WBC 7.1, RBC 4.17 L, Hgb 13.9, Hct 40.8, MCV 97.8 H, MCH 33.3 H, MCHC 34.1, RDW Std Deviation 46.0 H, RDW Coeff of Yodit 12.9, Plt Count 272, MPV 9.8, Immature Gran % (Auto) 0.300, Neut % (Auto) 63.3, Lymph % (Auto) 23.9, [place] % (Auto) 9.7, Eos % (Auto) 2.4, Baso % (Auto) 0.4, Absolute Neuts (auto) 4.5, Absolute Lymphs (auto) 1.71, Nucleated RBC % 0 06/01/20 19:50: Sodium 144, Potassium 3.7, Chloride 112 H, Carbon Dioxide 27.0, Anion Gap 5, BUN 15, Creatinine 0.87, Estim Creat Clear Calc 114.80, Est GFR (MDRD) Af Amer 120, Est GFR (MDRD) Non-Af 99, BUN/Creatinine Ratio 17.3, Glucose 117 H, Uric Acid 6.6, Calcium 9.1 06/01/20 19:50: Magnesium 2.3 06/01/20 19:50: S.aureus Protein A PCR NEGATIVE, MRSA (PCR) Negative 06/01/20 20:04: Lactic Acid 0.5 06/02/20 06:10: WBC 6.6, RBC 3.97 L, Hgb 12.8 L, Hct 38.9 L, MCV 98.0 H, MCH 32.2 H, MCHC 32.9, RDW Std Deviation 47.6 H, RDW Coeff of Yodit 13.1, Plt Count 259, MPV 9.5, Immature Gran % (Auto) 0.300, Neut % (Auto) 50.5, Lymph % (Auto) 34.3, [place] % (Auto) 10.9 H, Eos % (Auto) 3.2, Baso % (Auto) 0.8, Absolute Neuts (auto) 3.3, Absolute Lymphs (auto) 2.26, Nucleated RBC % 0 06/02/20 06:10: Sodium 145, Potassium 3.8, Chloride 114 H, Carbon Dioxide 29.0, Anion Gap 2 L, BUN 13, Creatinine 0.85, Estim Creat Clear Calc 117.50, Est GFR (MDRD) Af Amer 123, Est GFR (MDRD) Non-Af 102, BUN/Creatinine Ratio 15.4, Glucose 95, Calcium 8.6, Total Bilirubin 0.20, AST 16, ALT 13 L, Alkaline Phosphatase 94, Total Protein 6.2 L, Albumin 3.3, Globulin 2.9, Albumin/Globulin Ratio 1.1 Current Medications Acetaminophen (Tylenol) 650 mg PO Q6H PRN PRN PRN Reason: Pain Score 1-10/Temp > 100.7 F Al Hydroxide/Mg Hydroxide (Mylanta Ii) 30 ml PO Q6H PRN PRN PRN Reason: Gastric Burning Albuterol Sulfate (Ventolin Aerosols) 2.5 mg INHALATION Q2H PRN PRN PRN Reason: Dyspnea, wheezing Divalproex Sodium (Depakote) 750 mg PO 0800 [facility] Last Admin: 06/02/20 08:30 Dose: 750 mg Documented by: Divalproex Sodium (Depakote) 500 mg PO QHS [facility] Last Admin: 06/02/20 00:28 Dose: 500 mg Documented by: Enoxaparin Sodium (Lovenox) 40 mg SC DAILY [facility] Last Admin: 06/02/20 10:36 Dose: 40 mg Documented by: Famotidine (Pepcid) 20 mg PO BID [facility] Last Admin: 06/02/20 10:36 Dose: 20 mg Documented by: Guaifenesin (Robitussin) 20 ml PO Q4H PRN PRN PRN Reason: COUGH Hydralazine HCl (Apresoline Iv) 10 mg IV Q4H PRN PRN PRN Reason: SBP > 160 Sodium Chloride () 1,000 mls @ 100 mls/hr IV .Q10H [facility] Last Infusion: 06/02/20 11:31 Dose: 100 mls/hr Documented by: Vancomycin IV Pharmacy to Dose (1 ea/ Sodium Chloride) 500 mls @ 250 mls/hr IV X1 PRN; Protocol PRN Reason: Rx to Dose Ampicillin Sodium/Sulbactam (Sodium 3 gm/ Sodium Chloride) 112 mls @ 150 mls/hr IV Q6 [facility] Last Infusion: 06/02/20 11:31 Dose: Infused Documented by: Vancomycin HCl 1,500 mg/ (Sodium Chloride) 530 mls @ 250 mls/hr IV Q12H [facility] Last Infusion: 06/02/20 10:38 Dose: Infused Documented by: Magnesium Hydroxide (Milk Of Magnesia) 30 ml PO DAILY PRN PRN PRN Reason: Constipation Morphine Sulfate () 2 mg IV Q3H PRN PRN PRN Reason: Pain Score 6-10/10 Ondansetron HCl (Zofran) 4 mg IV Q8H PRN PRN PRN Reason: NAUSEA/VOMITING Oxycodone HCl (Oxyir) 5 mg PO Q4H PRN PRN PRN Reason: Pain Score 4-5/10 Last Admin: 06/02/20 10:45 Dose: 5 mg Documented by: Prochlorperazine Edisylate (Compazine Iv) 5 mg IV Q4H PRN PRN PRN Reason: Breakthrough nausea/vomiting Psyllium Hydrophilic Mucilloid (Metamucil) 1 packet PO DAILY PRN PRN PRN Reason: Constipation Senna/Docusate Sodium (Senokot-S, Sharon-Colace) 2 tablet PO BID PRN PRN PRN Reason: Constipation Temazepam (Restoril) 15 mg PO QHS PRN PRN PRN Reason: INSOMNIA Throat Lozenges (Cepacol Sore Throat Lozenge) 1 lozenge MUCOUS MEM Q2H PRN PRN PRN Reason: SORE THROAT Medical Necessity - Tobacco Use Smoking Status: Current some day smoker Tobacco Use: Cigarettes Assessment/Plan All Active Problems Cellulitis (Acute) Laceration of right lower extremity (Acute) 1. Right lower extremity cellulitis with recent anterior tibial wound, failed outpatient treatment with antibiotic therapy-MRSA/MSSA PCR negative. Wound culture shows no growth. Lower extremity duplex ultrasound negative for DVT. Tibia/fibula x-ray pending. Continue Unasyn. DC Vanc. Wound RN consult. 2. History of seizure disorder-continue Depakote. 3. Tobacco dependence-encouraged cessation. Nicotine replacement patch if desired. 4. Chronic asthma-not on regimen. As needed albuterol. DVT prophylaxis-Lovenox This patient was seen by LANI Larson under the supervision of Dr. Delgado. <Milton Delgado - Last Filed: 06/02/20 15:14> Subjective: Seen and examined. Patient had right lower leg and ankle pain and discomfort after he accidentally injured his right lower leg by a metal on the board and had laceration. He had injury on May 21. Currently denies fever or chills. Objective: Physical exam General: Alert, Oriented x3, Cooperative HEENT: Atraumatic, PERRLA, EOMI, Normocephalic Oral: No Gingival or Mucosal Lesions/ Ulcerations Neck: Supple, No JVD, Negative Carotid Bruits Lungs: Air entry diminished in bilateral lung bases. No crepitation/rhonchi Cardiovascular: Regular rate, Regular Rhythm, Normal S1, Normal S2, No murmurs Abdomen: Bowel Sounds Present, Soft, Non Tender, Non-Distended : No renal angle tenderness. No suprapubic tenderness. Extremities: No edema, Capillary Refill Less than 3 Seconds Skin: Small laceration wound linear in shape over right lower leg. Mild tenderness surrounding the laceration. Erythematous rash present from right lower leg to right ankle, gradually improving. No palpable inguinal lymphadenopathy. Musculoskeletal: No Tenderness to Palpation of Joints or Extremities Neurological: Cranial nerves II-XII grossly intact, Deep Tendon Reflexes 2+/4 and Symmetrical, Neuro grossly intact Psych/Mental Status: Normal Affect, Appropriate. - Physical Exam Vitals/I&O's: Vital Signs Temp Pulse Resp BP Pulse Ox 97.5 F L 61 14 131/83 H 99 06/02/20 14:55 06/02/20 14:55 06/02/20 14:55 06/02/20 14:55 06/02/20 14:55 Oxygen Delivery Method Room Air Weight: 209 lb 9.601 oz Body Mass Index (BMI) 27.6 Intake and Output for Last 24 Hours 05/31/20 06/01/20 06/02/20 23:59 23:59 23:59 Intake Total 719.0 / 719.0 2816.00 / 2816.00 Output Total 450 / 450 Balance 719.0 / 719.0 2366.00 / 2366.00 Microbiology Past 72 Hours 06/01/20 19:50 Wound - Leg, Right Gram Stain - Final 06/01/20 19:50 Wound - Leg, Right Wound Culture - Preliminary No growth-Final to follow Laboratory Results 06/01/20 19:50: WBC 7.1, RBC 4.17 L, Hgb 13.9, Hct 40.8, MCV 97.8 H, MCH 33.3 H, MCHC 34.1, RDW Std Deviation 46.0 H, RDW Coeff of Yodit 12.9, Plt Count 272, MPV 9.8, Immature Gran % (Auto) 0.300, Neut % (Auto) 63.3, Lymph % (Auto) 23.9, [place] % (Auto) 9.7, Eos % (Auto) 2.4, Baso % (Auto) 0.4, Absolute Neuts (auto) 4.5, Absolute Lymphs (auto) 1.71, Nucleated RBC % 0 06/01/20 19:50: Sodium 144, Potassium 3.7, Chloride 112 H, Carbon Dioxide 27.0, Anion Gap 5, BUN 15, Creatinine 0.87, Estim Creat Clear Calc 114.80, Est GFR (MDRD) Af Amer 120, Est GFR (MDRD) Non-Af 99, BUN/Creatinine Ratio 17.3, Glucose 117 H, Uric Acid 6.6, Calcium 9.1 06/01/20 19:50: Magnesium 2.3 06/01/20 19:50: S.aureus Protein A PCR NEGATIVE, MRSA (PCR) Negative 06/01/20 20:04: Lactic Acid 0.5 06/02/20 06:10: WBC 6.6, RBC 3.97 L, Hgb 12.8 L, Hct 38.9 L, MCV 98.0 H, MCH 32.2 H, MCHC 32.9, RDW Std Deviation 47.6 H, RDW Coeff of Yodit 13.1, Plt Count 259, MPV 9.5, Immature Gran % (Auto) 0.300, Neut % (Auto) 50.5, Lymph % (Auto) 34.3, [place] % (Auto) 10.9 H, Eos % (Auto) 3.2, Baso % (Auto) 0.8, Absolute Neuts (auto) 3.3, Absolute Lymphs (auto) 2.26, Nucleated RBC % 0 06/02/20 06:10: Sodium 145, Potassium 3.8, Chloride 114 H, Carbon Dioxide 29.0, Anion Gap 2 L, BUN 13, Creatinine 0.85, Estim Creat Clear Calc 117.50, Est GFR (MDRD) Af Amer 123, Est GFR (MDRD) Non-Af 102, BUN/Creatinine Ratio 15.4, Glucose 95, Calcium 8.6, Total Bilirubin 0.20, AST 16, ALT 13 L, Alkaline Phosphatase 94, Total Protein 6.2 L, Albumin 3.3, Globulin 2.9, Albumin/Globulin Ratio 1.1 Current Medications Acetaminophen (Tylenol) 650 mg PO Q6H PRN PRN PRN Reason: Pain Score 1-10/Temp > 100.7 F Al Hydroxide/Mg Hydroxide (Mylanta Ii) 30 ml PO Q6H PRN PRN PRN Reason: Gastric Burning Albuterol Sulfate (Ventolin Aerosols) 2.5 mg INHALATION Q2H PRN PRN PRN Reason: Dyspnea, wheezing Divalproex Sodium (Depakote) 750 mg PO 0800 [facility] Last Admin: 06/02/20 08:30 Dose: 750 mg Documented by: Divalproex Sodium (Depakote) 500 mg PO QHS [facility] Last Admin: 06/02/20 00:28 Dose: 500 mg Documented by: Enoxaparin Sodium (Lovenox) 40 mg SC DAILY [facility] Last Admin: 06/02/20 10:36 Dose: 40 mg Documented by: Famotidine (Pepcid) 20 mg PO BID [facility] Last Admin: 06/02/20 10:36 Dose: 20 mg Documented by: Guaifenesin (Robitussin) 20 ml PO Q4H PRN PRN PRN Reason: COUGH Hydralazine HCl (Apresoline Iv) 10 mg IV Q4H PRN PRN PRN Reason: SBP > 160 Sodium Chloride () 1,000 mls @ 100 mls/hr IV .Q10H [facility] Last Admin: 06/02/20 14:33 Dose: 100 mls/hr Documented by: Vancomycin IV Pharmacy to Dose (1 ea/ Sodium Chloride) 500 mls @ 250 mls/hr IV X1 PRN; Protocol PRN Reason: Rx to Dose Ampicillin Sodium/Sulbactam (Sodium 3 gm/ Sodium Chloride) 112 mls @ 150 mls/hr IV Q6 [facility] Last Infusion: 06/02/20 11:31 Dose: Infused Documented by: Vancomycin HCl 1,500 mg/ (Sodium Chloride) 530 mls @ 250 mls/hr IV Q12H [facility] Last Infusion: 06/02/20 10:38 Dose: Infused Documented by: Magnesium Hydroxide (Milk Of Magnesia) 30 ml PO DAILY PRN PRN PRN Reason: Constipation Morphine Sulfate () 2 mg IV Q3H PRN PRN PRN Reason: Pain Score 6-10/10 Ondansetron HCl (Zofran) 4 mg IV Q8H PRN PRN PRN Reason: NAUSEA/VOMITING Oxycodone HCl (Oxyir) 5 mg PO Q4H PRN PRN PRN Reason: Pain Score 4-5/10 Last Admin: 06/02/20 14:39 Dose: 5 mg Documented by: Prochlorperazine Edisylate (Compazine Iv) 5 mg IV Q4H PRN PRN PRN Reason: Breakthrough nausea/vomiting Psyllium Hydrophilic Mucilloid (Metamucil) 1 packet PO DAILY PRN PRN PRN Reason: Constipation Senna/Docusate Sodium (Senokot-S, Sharon-Colace) 2 tablet PO BID PRN PRN PRN Reason: Constipation Temazepam (Restoril) 15 mg PO QHS PRN PRN PRN Reason: INSOMNIA Throat Lozenges (Cepacol Sore Throat Lozenge) 1 lozenge MUCOUS MEM Q2H PRN PRN PRN Reason: SORE THROAT Assessment/Plan This patient was seen in conjunction with Gill ABRAMS. I have independently interviewed and examined the patient and reviewed pertinent history, examination findings, laboratory and plan of management. I have reviewed the note and agree with the documented findings with the few additional points. In brief, patient is 50-year-old gentleman admitted with right lower extremity cellulitis with right anterior lower leg laceration wound. Patient failed outpatient treatment with Keflex. Started on IV Unasyn and cellulitis is improving. Tibia-fibula x-ray was done which showed no bony abnormality and soft tissue structures are unremarkable. Wound RN was consulted. Patient has other comorbidities including seizure disorder, chronic cigarette smoking/nicotine dependence and mild chronic stable asthma. I have discussed my assessment with Gill ABRAMS and orders have been reviewed. Clinical Impression(s) from Imaging Studies Tibia/Fibula X-Ray 06/02/20 08:55 IMPRESSION: Normal x-ray examination of the tibia and fibula. Electronically Signed: [place], at 14:37 EDT , Service support , Inpatient E&M: [id number] Subs Hosp L2
[2020-06-02] MEDS: DiphenhydrAMINE 50 MG/ML Syringe 25 MG IV (23:14)
[2020-06-03 02:53] VITALS: BP 128/69; PULSE 68; RESP 14; TEMP 36.6; O2SAT 96
[2020-06-03] MEDS: oxyCODONE 5 MG Tablet PO ×4 (03:03→21:09)
[2020-06-03 07:22] VITALS: O2SAT 97
[2020-06-03] MEDS: DiphenhydrAMINE 50 MG/ML Syringe 25 MG IV ×3 (07:54→23:40)
[2020-06-03 08:01] LABS: Vancomycin, Trough Level 12.4 ug/mL (5.0-15.0)
--- NOTE | 2020-06-03 08:19 | RAD_ITS ---
STUDY: X-RAY - RIGHT FOOT CLINICAL: Male, 50 years old. RIGHT LEG CELLULITIS. REDNESS, SWELLING, TENDERNESS AND WARM TO TOUCH HIS ANKLE INTO HIS RIGHT FOOT. TECHNIQUE: 3 view(s) of the foot. COMPARISON: None. FINDINGS: Normal talus, calcaneus, and tarsal bones. Normal visualized subtalar, talonavicular, calcaneocuboid, tarsal and tarsometatarsal articulations. Normal metatarsi. Normal metatarsophalangeal joint of the great toe. Normal tibial and fibular sesamoid bones. Normal interphalangeal joint of the great toe. Normal phalanges of the great toe. Normal second through fifth metatarsophalangeal joints. Normal interphalangeal joints and phalanges of the lesser toes. Soft tissue swelling. RAD/Foot min 3 Views IMPRESSION: Mild soft tissue swelling. Electronically Signed: [place], at 13:13 EDT , Service support ,
[2020-06-03 08:23] VITALS: BP 121/77; PULSE 54; RESP 18; TEMP 36.7; O2SAT 100
[2020-06-03] MEDS: Divalproex Sodium 250 MG Tablet 750 MG PO (08:30)
[2020-06-03] MEDS: 0.9% Normal Saline 1,000 ML 100 ML IV ×2 (08:32→22:03)
--- NOTE | 2020-06-03 09:30 | RAD_ITS ---
STUDY: X-RAY - RIGHT ANKLE REASON FOR EXAM: Male, 50 years old. RIGHT LEG CELLULITIS. REDNESS, SWELLING, TENDERNESS AND WARM TO TOUCH HIS ANKLE INTO HIS RIGHT FOOT. TECHNIQUE: 4 view(s) of the ankle. COMPARISON: None. FINDINGS: Normal visualized distal tibia and fibula. Normal medial and lateral malleoli. Normal tibiotalar articulation and ankle mortise. Normal visualized talus and calcaneus. The visualized subtalar, talonavicular, calcaneocuboid and tarsal articulations are normal. The soft tissue structures are unremarkable. RAD/Ankle min 3 Views IMPRESSION: Normal x-ray examination of the ankle. Electronically Signed: [place], at 13:13 EDT , Service support ,
[2020-06-03] MEDS: Famotidine 20 MG Tablet PO ×2 (10:17→21:09)
[2020-06-03] MEDS: Enoxaparin 40 MG/0.4 ML Syringe SC (10:17)
[2020-06-03 10:20] VITALS: PULSE 76
--- NOTE | 2020-06-03 13:52 | PN_ITS ---
<Gill Bales POLYSTYRENE BEAD MOLDER - Last Filed: 06/03/20 13:55> Patient Problems: Active and Suspected Problems Cellulitis (Acute) Laceration of right lower extremity (Acute) Right leg pain (Acute) Subjective: Patient seen and examined. Right foot redness improved. Reports increased right medial ankle pain with significant pain even with light touch. Podiatry consult pending. - Physical Exam Vitals/I&O's: Vital Signs Temp Pulse Resp BP Pulse Ox 98.1 F 76 18 121/77 H 100 06/03/20 08:23 06/03/20 10:20 06/03/20 08:23 06/03/20 08:23 06/03/20 08:23 Oxygen Delivery Method Room Air Weight: 209 lb 9.601 oz Body Mass Index (BMI) 27.6 Intake and Output for Last 24 Hours 06/01/20 06/02/20 06/03/20 23:59 23:59 23:59 Intake Total 719.0 / 719.0 6334.66 / 7234.66 3047.34 / 3047.34 Output Total 3350 / 4550 1800 / 1800 Balance 719.0 / 719.0 2984.66 / 2684.66 1247.34 / 1247.34 General: Alert, Oriented x3, Cooperative HEENT: Atraumatic, PERRLA, EOMI, Normocephalic Neck: Supple, No JVD, Negative Carotid Bruits Lungs: Clear to auscultation, Normal air movement Cardiovascular: Regular rate, No murmurs Abdomen: Bowel Sounds Present, Soft, Non Tender, Non-Distended Extremities: No clubbing, No cyanosis, No edema, Capillary Refill Less than 3 Seconds Skin: - - Right rock laceration, right ankle erythema Musculoskeletal: No Tenderness to Palpation of Joints or Extremities, Tenderness - Right medial ankle Neurological: Cranial nerves II-XII grossly intact, Neuro grossly intact Psych/Mental Status: Normal Affect, Appropriate Microbiology Past 72 Hours 06/01/20 19:50 Wound - Leg, Right Gram Stain - Final 06/01/20 19:50 Wound - Leg, Right Wound Culture - Preliminary No growth-Final to follow Laboratory Results 06/03/20 07:30: Vancomycin Trough 12.4 Current Medications Acetaminophen (Tylenol) 650 mg PO Q6H PRN PRN PRN Reason: Pain Score 1-10/Temp > 100.7 F Al Hydroxide/Mg Hydroxide (Mylanta Ii) 30 ml PO Q6H PRN PRN PRN Reason: Gastric Burning Albuterol Sulfate (Ventolin Aerosols) 2.5 mg INHALATION Q2H PRN PRN PRN Reason: Dyspnea, wheezing Diphenhydramine HCl (Benadryl) 25 mg IV Q8H PRN PRN PRN Reason: itching Last Admin: 06/03/20 07:54 Dose: 25 mg Documented by: Divalproex Sodium (Depakote) 750 mg PO 0800 [facility] Last Admin: 06/03/20 08:30 Dose: 750 mg Documented by: Divalproex Sodium (Depakote) 500 mg PO QHS [facility] Last Admin: 06/02/20 20:45 Dose: 500 mg Documented by: Enoxaparin Sodium (Lovenox) 40 mg SC DAILY [facility] Last Admin: 06/03/20 10:17 Dose: 40 mg Documented by: Famotidine (Pepcid) 20 mg PO BID [facility] Last Admin: 06/03/20 10:17 Dose: 20 mg Documented by: Guaifenesin (Robitussin) 20 ml PO Q4H PRN PRN PRN Reason: COUGH Hydralazine HCl (Apresoline Iv) 10 mg IV Q4H PRN PRN PRN Reason: SBP > 160 Sodium Chloride () 1,000 mls @ 100 mls/hr IV .Q10H [facility] Last Infusion: 06/03/20 12:15 Dose: 0 mls/hr Documented by: Vancomycin IV Pharmacy to Dose (1 ea/ Sodium Chloride) 500 mls @ 250 mls/hr IV X1 PRN; Protocol PRN Reason: Rx to Dose Ampicillin Sodium/Sulbactam (Sodium 3 gm/ Sodium Chloride) 112 mls @ 150 mls/hr IV Q6 [facility] Last Admin: 06/03/20 12:14 Dose: 150 mls/hr Documented by: Vancomycin HCl 1,500 mg/ (Sodium Chloride) 530 mls @ 250 mls/hr IV Q12H [facility] Last Infusion: 06/03/20 10:38 Dose: Infused Documented by: Magnesium Hydroxide (Milk Of Magnesia) 30 ml PO DAILY PRN PRN PRN Reason: Constipation Morphine Sulfate () 2 mg IV Q3H PRN PRN PRN Reason: Pain Score 6-10/10 Ondansetron HCl (Zofran) 4 mg IV Q8H PRN PRN PRN Reason: NAUSEA/VOMITING Oxycodone HCl (Oxyir) 5 mg PO Q4H PRN PRN PRN Reason: Pain Score 4-5/10 Last Admin: 06/03/20 08:29 Dose: 5 mg Documented by: Prochlorperazine Edisylate (Compazine Iv) 5 mg IV Q4H PRN PRN PRN Reason: Breakthrough nausea/vomiting Psyllium Hydrophilic Mucilloid (Metamucil) 1 packet PO DAILY PRN PRN PRN Reason: Constipation Senna/Docusate Sodium (Senokot-S, Sharon-Colace) 2 tablet PO BID PRN PRN PRN Reason: Constipation Temazepam (Restoril) 15 mg PO QHS PRN PRN PRN Reason: INSOMNIA Throat Lozenges (Cepacol Sore Throat Lozenge) 1 lozenge MUCOUS MEM Q2H PRN PRN PRN Reason: SORE THROAT Medical Necessity - Tobacco Use Smoking Status: Current some day smoker Tobacco Use: Cigarettes Assessment/Plan All Active Problems Cellulitis (Acute) Laceration of right lower extremity (Acute) Right leg pain (Acute) 1. Right lower extremity cellulitis with recent anterior tibial wound, failed outpatient treatment with antibiotic therapy-MRSA/MSSA PCR negative. Wound culture shows no growth. Lower extremity duplex ultrasound negative for DVT. Tibia/fibula x-ray unremarkable. Continue Unasyn. DC Vanc. Wound RN consult. Podiatry consulted given significant right ankle pain. Disposition pending podiatry evaluation. 2. History of seizure disorder-continue Depakote. 3. Tobacco dependence-encouraged cessation. Nicotine replacement patch if desired. 4. Chronic asthma-not on regimen. As needed albuterol. DVT prophylaxis-Lovenox This patient was seen by LANI Larson under the supervision of Dr. Delgado. <Milton Delgado - Last Filed: 06/03/20 14:31> Objective: Patient complain of pain over right medial malleolus, swelling and pain on right foot on walking. The wound overall has tenderness around it with scant discharge. Erythema and induration is improving. Physical exam General: Alert, Oriented x3, Cooperative HEENT: Atraumatic, PERRLA, EOMI, Normocephalic Oral: No Gingival or Mucosal Lesions/ Ulcerations Neck: Supple, No JVD, Negative Carotid Bruits Lungs: Air entry diminished in bilateral lung bases. No crepitation/rhonchi Cardiovascular: Regular rate, Regular Rhythm, Normal S1, Normal S2, No murmurs Abdomen: Bowel Sounds Present, Soft, Non Tender, Non-Distended : No renal angle tenderness. No suprapubic tenderness. Extremities: Capillary Refill Less than 3 Seconds. Mild right foot and ankle swelling and edema. There is tenderness around right medial malleolus. Skin: Small laceration wound linear in shape over right lower leg. Mild tenderness and induration surrounding the laceration. Erythematous rash present from right lower leg to right ankle, gradually improving. No palpable inguinal lymphadenopathy. Musculoskeletal: No Tenderness to Palpation of Joints or Extremities Neurological: Cranial nerves II-XII grossly intact, Deep Tendon Reflexes 2+/4 and Symmetrical, Neuro grossly intact Psych/Mental Status: Normal Affect, Appropriate. - Physical Exam Vitals/I&O's: Vital Signs Temp Pulse Resp BP Pulse Ox 98.0 F 67 16 139/80 H 98 06/03/20 14:10 06/03/20 14:10 06/03/20 14:10 06/03/20 14:10 06/03/20 14:10 Oxygen Delivery Method Room Air Weight: 209 lb 9.601 oz Body Mass Index (BMI) 27.6 Intake and Output for Last 24 Hours 06/01/20 06/02/20 06/03/20 23:59 23:59 23:59 Intake Total 719.0 / 719.0 6334.66 / 7234.66 3159.34 / 3159.34 Output Total 3350 / 4550 1800 / 1800 Balance 719.0 / 719.0 2984.66 / 2684.66 1359.34 / 1359.34 Microbiology Past 72 Hours 06/01/20 19:50 Wound - Leg, Right Gram Stain - Final 06/01/20 19:50 Wound - Leg, Right Wound Culture - Preliminary No growth-Final to follow Laboratory Results 06/03/20 07:30: Vancomycin Trough 12.4 Current Medications Acetaminophen (Tylenol) 650 mg PO Q6H PRN PRN PRN Reason: Pain Score 1-10/Temp > 100.7 F Al Hydroxide/Mg Hydroxide (Mylanta Ii) 30 ml PO Q6H PRN PRN PRN Reason: Gastric Burning Albuterol Sulfate (Ventolin Aerosols) 2.5 mg INHALATION Q2H PRN PRN PRN Reason: Dyspnea, wheezing Diphenhydramine HCl (Benadryl) 25 mg IV Q8H PRN PRN PRN Reason: itching Last Admin: 06/03/20 07:54 Dose: 25 mg Documented by: Divalproex Sodium (Depakote) 750 mg PO 0800 [facility] Last Admin: 06/03/20 08:30 Dose: 750 mg Documented by: Divalproex Sodium (Depakote) 500 mg PO QHS [facility] Last Admin: 06/02/20 20:45 Dose: 500 mg Documented by: Enoxaparin Sodium (Lovenox) 40 mg SC DAILY [facility] Last Admin: 06/03/20 10:17 Dose: 40 mg Documented by: Famotidine (Pepcid) 20 mg PO BID [facility] Last Admin: 06/03/20 10:17 Dose: 20 mg Documented by: Guaifenesin (Robitussin) 20 ml PO Q4H PRN PRN PRN Reason: COUGH Hydralazine HCl (Apresoline Iv) 10 mg IV Q4H PRN PRN PRN Reason: SBP > 160 Sodium Chloride () 1,000 mls @ 100 mls/hr IV .Q10H [facility] Last Infusion: 06/03/20 12:59 Dose: 100 mls/hr Documented by: Ampicillin Sodium/Sulbactam (Sodium 3 gm/ Sodium Chloride) 112 mls @ 150 mls/hr IV Q6 [facility] Last Infusion: 06/03/20 12:59 Dose: Infused Documented by: Magnesium Hydroxide (Milk Of Magnesia) 30 ml PO DAILY PRN PRN PRN Reason: Constipation Morphine Sulfate () 2 mg IV Q3H PRN PRN PRN Reason: Pain Score 6-10/10 Ondansetron HCl (Zofran) 4 mg IV Q8H PRN PRN PRN Reason: NAUSEA/VOMITING Oxycodone HCl (Oxyir) 5 mg PO Q4H PRN PRN PRN Reason: Pain Score 4-5/10 Last Admin: 06/03/20 08:29 Dose: 5 mg Documented by: Prochlorperazine Edisylate (Compazine Iv) 5 mg IV Q4H PRN PRN PRN Reason: Breakthrough nausea/vomiting Psyllium Hydrophilic Mucilloid (Metamucil) 1 packet PO DAILY PRN PRN PRN Reason: Constipation Senna/Docusate Sodium (Senokot-S, Sharon-Colace) 2 tablet PO BID PRN PRN PRN Reason: Constipation Temazepam (Restoril) 15 mg PO QHS PRN PRN PRN Reason: INSOMNIA Throat Lozenges (Cepacol Sore Throat Lozenge) 1 lozenge MUCOUS MEM Q2H PRN PRN PRN Reason: SORE THROAT Assessment/Plan This patient was seen in conjunction with Gill ABRAMS. I have independently interviewed and examined the patient and reviewed pertinent history, examination findings, laboratory and plan of management. I have reviewed the note and agree with the documented findings with the few additional points. In brief, patient is 50-year-old gentleman admitted with right lower extremity cellulitis with right anterior lower leg laceration wound. Patient failed outpatient treatment with Keflex. Started on IV Unasyn and cellulitis is improving. Tibia-fibula x-ray was done which showed no bony abnormality and sof t tissue structures are unremarkable. Wound RN was consulted. With continued pain over right medial malleolus, ankle and feet, rail transit operator was consulted. Right ankle and foot x-ray was done which shows mild soft tissue swelling. Warp Tying Machine Tender Dr. Wheeler consult appreciated and there is plan for local wound debridement. Preliminary wound culture in ER shows no growth. Patient has other comorbidities including seizure disorder, chronic cigarette smoking/nicotine dependence and mild chronic stable asthma. I have discussed my assessment with Gill ABRAMS and orders have been reviewed. Clinical Impression(s) from Imaging Studies Tibia/Fibula X-Ray 06/02/20 08:55 IMPRESSION: Normal x-ray examination of the tibia and fibula. Foot X-Ray 06/03/20 08:19 IMPRESSION: Mild soft tissue swelling. Electronically Signed: [place], at 13:13 EDT , Service support , Ankle X-Ray 06/03/20 09:30 IMPRESSION: Normal x-ray examination of the ankle. Electronically Signed: [place], at 13:13 EDT , Service support , Inpatient E&M: [id number] Subs Hosp L2
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
[2020-06-03 14:10] VITALS: BP 139/80; PULSE 67; RESP 16; TEMP 36.7; O2SAT 98
--- NOTE | 2020-06-03 15:32 | NURSING ---
RT LEG WOUND DEBRIDEMENT DONE AT BEDSIDE BY . SHE APPLIED DRSG OF AQUACEL-AG, GAUZE, ABD PAD, HARLEY & AGUILAR WRAP.
[2020-06-03 20:20] VITALS: BP 140/75; PULSE 77; RESP 18; TEMP 36.6; O2SAT 98
[2020-06-03] MEDS: Divalproex Sodium 250 MG Tablet 500 MG PO (21:09)
[2020-06-04 02:20] VITALS: BP 129/77; PULSE 60; RESP 18; TEMP 36.6; O2SAT 98
[2020-06-04] MEDS: oxyCODONE 5 MG Tablet PO ×3 (02:29→13:46)
[2020-06-04 08:11] VITALS: BP 121/84; PULSE 64; RESP 16; TEMP 36.6; O2SAT 95
[2020-06-04] MEDS: Divalproex Sodium 250 MG Tablet 750 MG PO (08:29)
[2020-06-04] MEDS: DiphenhydrAMINE 50 MG/ML Syringe 25 MG IV ×2 (08:34→13:46)
[2020-06-04] MEDS: Enoxaparin 40 MG/0.4 ML Syringe SC (09:23)
[2020-06-04] MEDS: 0.9% Normal Saline 1,000 ML 100 ML IV (09:23)
[2020-06-04] MEDS: Famotidine 20 MG Tablet PO ×2 (09:23→13:08)
--- NOTE | 2020-06-04 10:30 | PN_ITS ---
Patient Problems: Active and Suspected Problems Cellulitis (Acute) Laceration of right lower extremity (Acute) Right leg pain (Acute) Ulcer of right lower extremity with fat layer exposed (Acute) Subjective: This 50-year-old male was seen bedside this morning for follow-up of right traumatic leg laceration in the leg setting with subsequent cellulitis development. He relates his pain is getting a little bit better to his foot and there is less redness. He denies fever, chill, nausea, vomiting. - Physical Exam Vitals/I&O's: Vital Signs Temp Pulse Resp BP Pulse Ox 97.8 F 64 16 121/84 H 95 06/04/20 08:11 06/04/20 08:11 06/04/20 08:11 06/04/20 08:11 06/04/20 08:11 Oxygen Delivery Method Room Air Weight: 95.073 kg Body Mass Index (BMI) 27.6 Intake and Output for Last 24 Hours 06/02/20 06/03/20 06/04/20 23:59 23:59 23:59 Intake Total 6334.66 / 7234.66 5266.34 / 5266.34 1049 / 1049 Output Total 3350 / 4550 2800 / 2800 Balance 2984.66 / 2684.66 2466.34 / 2466.34 1049 / 1049 General: Alert, Oriented x3, Cooperative HEENT: Atraumatic Extremities: No cyanosis, Capillary Refill Less than 3 Seconds - All digits right foot, No Calf Tenderness - Negative Breana and Perez sign, Edema - Decrea sed, Peripheral Pulses Normal, - - 5/5 ankle muscle strength with some pain apprehension noted. He is able to fully use his extensor tendons and tibialis anterior tendon with resisted muscle strength Skin: Ulcer/ Wound - Anterior medial mid right leg wound has resolution of inflammation. There is no purulence, erythema, streaking, odor, bogginess or fluctuance on adjacent palpation. There is no eschar formation and the drainage is serosanguineous. Wound site is also previously mobilized and the edges would approximate without tension., - - Erythema and edema have significantly reduced to the medial ankle and foot area. There is some residual ecchymosis that is fading Musculoskeletal: No Muscle Wasting, Tenderness - Tenderness palpation to the wound site is decreased. There is full decreased deep palpation along the medial muscle compartment at the ankle level. There is no pain with passive ambulation of the midfoot, subtalar joint or ankle. There is decrease plantar fascial to the medial malleolus as well. Neurological: Sensory exam intact to light touch and pain Psych/Mental Status: Normal Affect, Appropriate Microbiology Past 72 Hours 06/01/20 19:50 Wound - Leg, Right Gram Stain - Final 06/01/20 19:50 Wound - Leg, Right Wound Culture - Preliminary No growth-Final to follow Current Medications Acetaminophen (Tylenol) 650 mg PO Q6H PRN PRN PRN Reason: Pain Score 1-10/Temp > 100.7 F Al Hydroxide/Mg Hydroxide (Mylanta Ii) 30 ml PO Q6H PRN PRN PRN Reason: Gastric Burning Albuterol Sulfate (Ventolin Aerosols) 2.5 mg INHALATION Q2H PRN PRN PRN Reason: Dyspnea, wheezing Diphenhydramine HCl (Benadryl) 25 mg IV Q8H PRN PRN PRN Reason: itching Last Admin: 06/04/20 08:34 Dose: 25 mg Documented by: Divalproex Sodium (Depakote) 750 mg PO 0800 [facility] Last Admin: 06/04/20 08:29 Dose: 750 mg Documented by: Divalproex Sodium (Depakote) 500 mg PO QHS [facility] Last Admin: 06/03/20 21:09 Dose: 500 mg Documented by: Enoxaparin Sodium (Lovenox) 40 mg SC DAILY [facility] Last Admin: 06/04/20 09:23 Dose: 40 mg Documented by: Famotidine (Pepcid) 20 mg PO BID [facility] Last Admin: 06/04/20 09:23 Dose: 20 mg Documented by: Guaifenesin (Robitussin) 20 ml PO Q4H PRN PRN PRN Reason: COUGH Hydralazine HCl (Apresoline Iv) 10 mg IV Q4H PRN PRN PRN Reason: SBP > 160 Sodium Chloride () 1,000 mls @ 100 mls/hr IV .Q10H [facility] Last Admin: 06/04/20 09:23 Dose: 100 mls/hr Documented by: Ampicillin Sodium/Sulbactam (Sodium 3 gm/ Sodium Chloride) 112 mls @ 150 mls/hr IV Q6 [facility] Last Infusion: 06/04/20 06:14 Dose: Infused Documented by: Magnesium Hydroxide (Milk Of Magnesia) 30 ml PO DAILY PRN PRN PRN Reason: Constipation Ondansetron HCl (Zofran) 4 mg IV Q8H PRN PRN PRN Reason: NAUSEA/VOMITING Oxycodone HCl (Oxyir) 5 mg PO Q4H PRN PRN PRN Reason: Pain Score 4-5/10 Last Admin: 06/04/20 08:28 Dose: 5 mg Documented by: Prochlorperazine Edisylate (Compazine Iv) 5 mg IV Q4H PRN PRN PRN Reason: Breakthrough nausea/vomiting Psyllium Hydrophilic Mucilloid (Metamucil) 1 packet PO DAILY PRN PRN PRN Reason: Constipation Senna/Docusate Sodium (Senokot-S, Sharon-Colace) 2 tablet PO BID PRN PRN PRN Reason: Constipation Sodium Chloride () 10 - 40 ml IV UD PRN PRN Reason: SALINE FLUSH Temazepam (Restoril) 15 mg PO QHS PRN PRN PRN Reason: INSOMNIA Throat Lozenges (Cepacol Sore Throat Lozenge) 1 lozenge MUCOUS MEM Q2H PRN PRN PRN Reason: SORE THROAT Medical Necessity - Tobacco Use Smoking Status: Current some day smoker Tobacco Use: Cigarettes Assessment/Plan All Active Problems Cellulitis (Acute) Laceration of right lower extremity (Acute) Right leg pain (Acute) Ulcer of right lower extremity with fat layer exposed (Acute) Right leg laceration now ulcer status post day 1 bedside debridement with significant improvement in wound quality and resolution of inflammation Right lower extremity cellulitis improving Right leg pain improving Right leg contusion medical history: seizures Current tobacco user I reviewed and discussed his case. His vitals remained stable and he is afebrile. Clinically, cellulitis signs are improving. His ulcer that was read yesterday looks healthier and I recommended delayed primary closure under local anesthetic today. Informed procedure consent will be obtained including he understands the indication, benefit, risk, complications, anticipated procedure, anticipated healing time and management. No guarantees were made. He understands elects to proceed at this time. The consent was signed and answered his questions. Procedure details: The procedure site was cleansed with isopropyl alcohol and Betadine. 5 cc of 1% lidocaine plain were administered in a subdermal manner to the laceration wound site successfully. The area was cleaned again with Betadine and 4-0 nylon was utilized to reapproximate the wound margins utilizing horizontal, simple, and vertical mattress technique. Prior to closure saline irrigation was performed and there is no evidence of purulence or necrosis. There was limited tension on the wound. This oblique oriented laceration measured 2.3 cm in length.He tolerated this well. Pressure was applied to maintain hemostasis. There is no pulsatile bleeding noted. There was less than 2 cc of blood loss. A post procedure dressing consisting of Betadine gauze, abdominal pad, Adina and Sameer wrap were applied. A compression dressing was applied. He will leave this intact at home. It is noted he is on antibiotics, Unasyn. To continue at this time. Is okay to transition to oral antibiotics at time of discharge potentially today or tomorrow. It is okay to discharge from podiatry standpoint. Post debridement there is no bacterial growth so far from yesterday and the final results pending. Aerobic and anaerobic culture results are pending. To ice and elevate for pain and inflammation management. To weight-bear as tolerated. He has continued discomfort and I recommend using a cam walker boot. An order will be placed. He was advised on smoking cessation optimize healing. To follow-up at the [facility] within the next 3 to 5 days. Please do not hesitate to call if you have any questions. Mary Wheeler DPM, FACF[facility] [phone]
--- NOTE | 2020-06-04 11:17 | DCINST_ITS ---
Discharge Diet: No Restrictions Discharge Activity: May Shower - with a shower bag, - - weightbear as tolerated in walking boot right lower extremity Weight Bearing Status: Weight bearing as tolerated Keep extremity elevated above heart level: Right Leg Call your doctor if your incision/area has: Continuous Slow Oozing, Sudden Increased Bleeding, Increased Pain/ Swelling, Increased Redness, Foul Smelling Discharge, Swelling at the incision site Call your doctor if you observe: Fever of 101 or Higher, Calf discomfort, Uncontrolled pain Cleanse incision/area with: Keep Dressing Clean & Dry Additional Instructions: Quit smoking to optimize healing and to prevent complications and infections. Allergies/Adverse Reactions: Allergies No Known Allergies Allergy (Verified 06/01/20 19:36) Medications to take at Discharge Cephalexin [Keflex] 500 mg PO Q6 #40 cap 01/24/20 Divalproex Sodium [Depakote] 500 mg PO QHS 06/01/20 Divalproex Sodium [Depakote] 750 mg PO 0800 06/01/20 Primary Care Physician: Devika Cabrera MD [Primary Care Provider] - Test Results: Test results from this visit will be discussed in further detail at your follow- up appointment, if applicable. Please Follow Up With: Mary Wheeler DPM When: 3-5 days at [facility]. Call [phone] to schedule. Proposed Discharge Date: 06/04/20
--- NOTE | 2020-06-04 11:54 | DCINST_ITS ---
- Discharge Diagnoses Current Active Problems: Current Active and Chronic Problems Cellulitis (Acute) Laceration of right lower extremity (Acute) Seizure disorder (Chronic) Tobacco use (Chronic) Asthma (Chronic) Right leg pain (Acute) Ulcer of right lower extremity with fat layer exposed (Acute) You will use the following diet at home:: No restrictions Discharge Activity: Return to Normal Activity, May Shower - with a shower bag, - - weightbear as tolerated in walking boot right lower extremity Weight Bearing Status: Weight bearing as tolerated Keep extremity elevated above heart level: Right Leg Call your doctor if your incision/area has: Continuous Slow Oozing, Sudden Increased Bleeding, Increased Pain/ Swelling, Increased Redness, Foul Smelling Discharge, Swelling at the incision site Call your doctor if you observe: Fever of 101 or Higher, Calf discomfort, Uncontrolled pain Cleanse incision/area with: Keep Dressing Clean & Dry Allergies/Adverse Reactions: Allergies No Known Allergies Allergy (Verified 06/01/20 19:36) Medications to take at Discharge Divalproex Sodium [Depakote] 500 mg PO QHS 06/01/20 Divalproex Sodium [Depakote] 750 mg PO 0800 06/01/20 Amox/Clavulanate Tablet [Augmentin Tablet] 875 mg PO Q12H #10 tab 06/04/20 Ibuprofen 800 mg PO TID PRN #30 tab 06/04/20 Oxycodone [Oxyir] 5 mg PO Q4H PRN PRN 2 Days #10 tablet 06/04/20 The following prescriptions were given: Amox/Clavulanate Tablet [Augmentin Tablet] 875 mg PO Q12H #10 tab Transmission Status: Pending to [id number] Ibuprofen 800 mg PO TID PRN #30 tab PRN Reason: Pain Score 1-10/10 Transmission Status: Pending to [id number] Oxycodone [Oxyir] 5 mg PO Q4H PRN PRN 2 Days #10 tablet PRN Reason: Pain Score 4-5/10 [facility] Primary Care Physician: Devika Cabrera MD [Primary Care Provider] - Please follow up with your Primary Care Physician in: 1 Week Test Results: Test results from this visit will be discussed in further detail at your follow- up appointment, if applicable. Please Follow Up With: Mary Wheeler DPM When: 3-5 days at [facility]. Call [phone] to schedule. Proposed Discharge Date: 06/04/20
--- NOTE | 2020-06-04 12:15 | DS.PCM_ITS ---
<Gill Bales CLINICAL PATHOLOGIST - Last Filed: 06/04/20 12:24> Discharge Date and Diagnosis Date of Admission: 06/01/20 Date of Discharge: 06/04/20 - Primary Discharge Diagnosis Acute Problems: Active Problems 1. Right lower extremity cellulitis with recent anterior tibial wound, failed outpatient treatment with antibiotic therapy 2. History of seizure disorder 3. Tobacco dependence 4. Chronic asthma - Secondary Discharge Diagnosis Chronic Problems: Chronic Problems Seizure disorder (Chronic) Tobacco use (Chronic) Asthma (Chronic) Hospital Course and Treatment Imaging Results: Diagnostic Data Tibia/Fibula X-Ray 06/02/20 08:55 IMPRESSION: Normal x-ray examination of the tibia and fibula. Electronically Signed: [place], at 14:37 EDT , Service support , Foot X-Ray 06/03/20 08:19 IMPRESSION: Mild soft tissue swelling. Electronically Signed: [place], at 13:13 EDT , Service support , Ankle X-Ray 06/03/20 09:30 IMPRESSION: Normal x-ray examination of the ankle. Electronically Signed: [place], at 13:13 EDT , Service support , Dr. Wheeler- Podiatry Operations: None Procedures: None Summary of Care Provided: The patient is a 50 year old M admitted 06/01/2020 due to right lower extremity wound with pain and erythema. 1. Right lower extremity cellulitis with recent anterior tibial wound, failed outpatient treatment with antibiotic therapy-MRSA/MSSA PCR negative. Wound culture shows no growth. Lower extremity duplex ultrasound negative for DVT. Tibia/fibula x-ray unremarkable. IV Unasyn during admission. Podiatry consulted given significant right ankle pain. Patient underwent bedside excisional debridement 06/03/2020 with eschar material removed. No purulent drainage noted. Underwent delayed primary closure under local anesthetic 06/04/2020. Patient will leave dressing in place at home with further follow-up with podiatry in 3 to 5 days. Augmentin 875 mg p.o. twice daily at discharge to complete course of antibiotics. Ice and elevate right lower extremity for ongoing right ankle pain. 2. History of seizure disorder-continue Depakote. 3. Tobacco dependence-encouraged cessation. Nicotine replacement patch if desired. 4. Chronic asthma-not on regimen. As needed albuterol. General: Alert, Oriented x3, Cooperative HEENT: Atraumatic, PERRLA, EOMI, Normocephalic Neck: Supple, No JVD, Negative Carotid Bruits Lungs: Clear to auscultation, Normal air movement Cardiovascular: Regular rate, No murmurs Abdomen: Bowel Sounds Present, Soft, Non Tender, Non-Distended Extremities: No clubbing, No cyanosis, No edema, Capillary Refill Less than 3 Seconds Skin: - - Right rock laceration status post debridement and secondary wound closure-dressing intact, right ankle erythema Musculoskeletal: No Tenderness to Palpation of Joints or Extremities, Tenderness - Right medial ankle Neurological: Cranial nerves II-XII grossly intact, Neuro grossly intact Psych/Mental Status: Normal Affect, Appropriate Patient seen and examined prior to discharge. Physical assessment as noted above. Patient is stable for discharge with follow up recommendations as noted above. This patient was seen by LANI Larson under the supervision of Dr. Delgado. - Physical Exam Vitals/I&O's: Vital Signs Temp Pulse Resp BP Pulse Ox 97.8 F 64 16 121/84 H 95 06/04/20 08:11 06/04/20 08:11 06/04/20 08:11 06/04/20 08:11 06/04/20 08:11 Oxygen Delivery Method Room Air Weight: 209 lb 9.601 oz Body Mass Index (BMI) 27.6 Intake and Output for Last 24 Hours 06/02/20 06/03/20 06/04/20 23:59 23:59 23:59 Intake Total 6334.66 / 7234.66 5266.34 / 5266.34 1049 / 1049 Output Total 3350 / 4550 2800 / 2800 Balance 2984.66 / 2684.66 2466.34 / 2466.34 1049 / 1049 Microbiology Past 72 Hours 06/03/20 14:30 Wound - Leg, Right Gram Stain - Final 06/01/20 19:50 Wound - Leg, Right Gram Stain - Final 06/01/20 19:50 Wound - Leg, Right Wound Culture - Preliminary No growth-Final to follow Current Medications Acetaminophen (Tylenol) 650 mg PO Q6H PRN PRN PRN Reason: Pain Score 1-10/Temp > 100.7 F Al Hydroxide/Mg Hydroxide (Mylanta Ii) 30 ml PO Q6H PRN PRN PRN Reason: Gastric Burning Albuterol Sulfate (Ventolin Aerosols) 2.5 mg INHALATION Q2H PRN PRN PRN Reason: Dyspnea, wheezing Diphenhydramine HCl (Benadryl) 25 mg IV Q8H PRN PRN PRN Reason: itching Last Admin: 06/04/20 08:34 Dose: 25 mg Documented by: Divalproex Sodium (Depakote) 750 mg PO 0800 [facility] Last Admin: 06/04/20 08:29 Dose: 750 mg Documented by: Divalproex Sodium (Depakote) 500 mg PO QHS [facility] Last Admin: 06/03/20 21:09 Dose: 500 mg Documented by: Enoxaparin Sodium (Lovenox) 40 mg SC DAILY [facility] Last Admin: 06/04/20 09:23 Dose: 40 mg Documented by: Famotidine (Pepcid) 20 mg PO BID [facility] Last Admin: 06/04/20 09:23 Dose: 20 mg Documented by: Guaifenesin (Robitussin) 20 ml PO Q4H PRN PRN PRN Reason: COUGH Hydralazine HCl (Apresoline Iv) 10 mg IV Q4H PRN PRN PRN Reason: SBP > 160 Sodium Chloride () 1,000 mls @ 100 mls/hr IV .Q10H [facility] Last Admin: 06/04/20 09:23 Dose: 100 mls/hr Documented by: Ampicillin Sodium/Sulbactam (Sodium 3 gm/ Sodium Chloride) 112 mls @ 150 mls/hr IV Q6 [facility] Last Infusion: 06/04/20 06:14 Dose: Infused Documented by: Magnesium Hydroxide (Milk Of Magnesia) 30 ml PO DAILY PRN PRN PRN Reason: Constipation Ondansetron HCl (Zofran) 4 mg IV Q8H PRN PRN PRN Reason: NAUSEA/VOMITING Oxycodone HCl (Oxyir) 5 mg PO Q4H PRN PRN PRN Reason: Pain Score 4-5/10 Last Admin: 06/04/20 08:28 Dose: 5 mg Documented by: Prochlorperazine Edisylate (Compazine Iv) 5 mg IV Q4H PRN PRN PRN Reason: Breakthrough nausea/vomiting Psyllium Hydrophilic Mucilloid (Metamucil) 1 packet PO DAILY PRN PRN PRN Reason: Constipation Senna/Docusate Sodium (Senokot-S, Sharon-Colace) 2 tablet PO BID PRN PRN PRN Reason: Constipation Sodium Chloride () 10 - 40 ml IV UD PRN PRN Reason: SALINE FLUSH Temazepam (Restoril) 15 mg PO QHS PRN PRN PRN Reason: INSOMNIA Throat Lozenges (Cepacol Sore Throat Lozenge) 1 lozenge MUCOUS MEM Q2H PRN PRN PRN Reason: SORE THROAT Discharge Diet: No Restrictions Discharge Activity: Return to Normal Activity, May Shower - with a shower bag, - - weightbear as tolerated in walking boot right lower extremity Weight Bearing Status: Weight bearing as tolerated Keep extremity elevated above heart level: Right Leg Call your doctor if your incision/area has: Continuous Slow Oozing, Sudden Increased Bleeding, Increased Pain/ Swelling, Increased Redness, Foul Smelling Discharge, Swelling at the incision site Call your doctor if you observe: Fever of 101 or Higher, Calf discomfort, Uncontrolled pain Cleanse incision/area with: Keep Dressing Clean & Dry Home Medications: Medications to take at Discharge Divalproex Sodium [Depakote] 500 mg PO QHS 06/01/20 Divalproex Sodium [Depakote] 750 mg PO 0800 06/01/20 Amox/Clavulanate Tablet [Augmentin Tablet] 875 mg PO Q12H #10 tab 06/04/20 Ibuprofen 800 mg PO TID PRN #30 tab 06/04/20 Oxycodone [Oxyir] 5 mg PO Q4H PRN PRN 2 Days #10 tab 06/04/20 Following Prescriptions Were Given to Patient: Amox/Clavulanate Tablet [Augmentin Tablet] 875 mg PO Q12H #10 tab Transmission Status: Received by [id number] Ibuprofen 800 mg PO TID PRN #30 tab PRN Reason: Pain Score 1-10/10 Transmission Status: Received by [id number] Oxycodone [Oxyir] 5 mg PO Q4H PRN PRN 2 Days #10 tab PRN Reason: Pain Score 4-5/10 Transmission Status: Received by [id number] Primary Care Physician: Devika Cabrera MD [Primary Care Provider] - Please follow up with your Primary Care Physician in: 1 Week Please Follow Up With: Mary Wheeler DPM When: 3-5 days at [facility]. Call [phone] to schedule. Additional Instructions: Quit smoking to optimize healing and to prevent complications and infections. Disposition: Home Minutes spent on discharge:: 35 Patient Condition:: Stable Medical Necessity - Tobacco Use Smoking Status: Current some day smoker Tobacco Use: Cigarettes Meaningful Use Info Meaningful Use Diagnoses (Choose all that apply): None applicable <DannyKimMilton - Last Filed: 06/04/20 13:22> Discharge Date and Diagnosis - Secondary Discharge Diagnosis Chronic Problems: Chronic Problems Seizure disorder (Chronic) Tobacco use (Chronic) Asthma (Chronic) Hospital Course and Treatment Summary of Care Provided: This patient was seen in conjunction with CLINICAL PATHOLOGIST, Gill. I have independently interviewed and examined the patient and reviewed pertinent history, examination findings, laboratory and plan of management. I have reviewed the note and agree with the documented findings with the few additional points. In brief, patient is 50-year-old gentleman admitted with right lower extremity cellulitis with right anterior lower leg laceration wound. Patient failed outpatient treatment with Keflex. Started on IV Unasyn and cellulitis is improving. Tibia-fibula x-ray was done which showed no bony abnormality and soft tissue structures are unremarkable. Wound RN was consulted. With continued pain over right medial malleolus, ankle and feet, multiple slide operator was consulted. Right ankle and foot x-ray was done which shows mild soft tissue swelling. [employer] Dr. Wheeler consult appreciated and patient had bedside wound debridement. Patient had some eschar tissue removed. No purulent discharge. Advised to follow-up multiple slide operator in 3 to 5 days. Discharged on Augmentin 875 mg twice daily for 5 more days. Patient has other comorbidities including seizure disorder, chronic cigarette smoking/nicotine dependence and mild chronic stable asthma. Discharge medication reconciliation done. Discharge follow-up instructions completed. Discharge process discussed with the patient and all questions were answered to patient's satisfaction. Total time spent, exact 35 minutes on discharge meds reconciliation, examination, coordination of care with nurses and ancillary staff, review of imaging and blood test and discussion with the patient on follow-up instructions I have discussed my assessment with CLINICAL PATHOLOGISTGill and orders have been reviewed. [] Objective: Seen and examined. Patient pain has improved but he still mild pain on standing and putting weight. Seen by multiple slide operator. Physical exam General: Alert, Oriented x3, Cooperative HEENT: Atraumatic, PERRLA, EOMI, Normocephalic Oral: No Gingival or Mucosal Lesions/ Ulcerations Neck: Supple, No JVD, Negative Carotid Bruits Lungs: Air entry diminished in bilateral lung bases. No crepitation/rhonchi Cardiovascular: Regular rate, Regular Rhythm, Normal S1, Normal S2, No murmurs Abdomen: Bowel Sounds Present, Soft, Non Tender, Non-Distended : No renal angle tenderness. No suprapubic tenderness. Extremities: Mild tenderness over right medial malleolus and foot. Mild right ankle and foot swelling/edema. Capillary Refill Less than 3 Seconds Skin: Small laceration wound linear in shape over right lower leg. Erythematous rash present from right lower leg to right ankle, much improved. No palpable inguinal lymphadenopathy. Musculoskeletal: No Tenderness to Palpation of Joints or Extremities Neurological: Cranial nerves II-XII grossly intact, Deep Tendon Reflexes 2+/4 and Symmetrical, Neuro grossly intact Psych/Mental Status: Normal Affect, Appropriate. - Physical Exam Vitals/I&O's: Vital Signs Temp Pulse Resp BP Pulse Ox 97.8 F 64 16 121/84 H 95 06/04/20 08:11 06/04/20 08:11 06/04/20 08:11 06/04/20 08:11 06/04/20 08:11 Oxygen Delivery Method Room Air Weight: 209 lb 9.601 oz Body Mass Index (BMI) 27.6 Intake and Output for Last 24 Hours 06/02/20 06/03/20 06/04/20 23:59 23:59 23:59 Intake Total 6334.66 / 7234.66 5266.34 / 5266.34 1049 / 1049 Output Total 3350 / 4550 2800 / 2800 Balance 2984.66 / 2684.66 2466.34 / 2466.34 1049 / 1049 Microbiology Past 72 Hours 06/03/20 14:30 Wound - Leg, Right Gram Stain - Final 06/03/20 14:30 Wound - Leg, Right Wound Culture - Preliminary No growth-Final to follow 06/01/20 19:50 Wound - Leg, Right Gram Stain - Final 06/01/20 19:50 Wound - Leg, Right Wound Culture - Preliminary No growth-Final to follow Current Medications Acetaminophen (Tylenol) 650 mg PO Q6H PRN PRN PRN Reason: Pain Score 1-10/Temp > 100.7 F Al Hydroxide/Mg Hydroxide (Mylanta Ii) 30 ml PO Q6H PRN PRN PRN Reason: Gastric Burning Albuterol Sulfate (Ventolin Aerosols) 2.5 mg INHALATION Q2H PRN PRN PRN Reason: Dyspnea, wheezing Diphenhydramine HCl (Benadryl) 25 mg IV Q8H PRN PRN PRN Reason: itching Last Admin: 06/04/20 08:34 Dose: 25 mg Documented by: Divalproex Sodium (Depakote) 750 mg PO 0800 [facility] Last Admin: 06/04/20 08:29 Dose: 750 mg Documented by: Divalproex Sodium (Depakote) 500 mg PO QHS [facility] Last Admin: 06/03/20 21:09 Dose: 500 mg Documented by: Enoxaparin Sodium (Lovenox) 40 mg SC DAILY [facility] Last Admin: 06/04/20 09:23 Dose: 40 mg Documented by: Famotidine (Pepcid) 20 mg PO BID [facility] Last Admin: 06/04/20 13:08 Dose: 20 mg Documented by: Guaifenesin (Robitussin) 20 ml PO Q4H PRN PRN PRN Reason: COUGH Hydralazine HCl (Apresoline Iv) 10 mg IV Q4H PRN PRN PRN Reason: SBP > 160 Sodium Chloride () 1,000 mls @ 100 mls/hr IV .Q10H [facility] Last Admin: 06/04/20 09:23 Dose: 100 mls/hr Documented by: Ampicillin Sodium/Sulbactam (Sodium 3 gm/ Sodium Chloride) 112 mls @ 150 mls/hr IV Q6 [facility] Last Admin: 06/04/20 13:11 Dose: Not Given Documented by: Ibuprofen (Motrin) 600 mg PO Q6 [facility] Last Admin: 06/04/20 13:08 Dose: 600 mg Documented by: Magnesium Hydroxide (Milk Of Magnesia) 30 ml PO DAILY PRN PRN PRN Reason: Constipation Ondansetron HCl (Zofran) 4 mg IV Q8H PRN PRN PRN Reason: NAUSEA/VOMITING Oxycodone HCl (Oxyir) 5 mg PO Q4H PRN PRN PRN Reason: Pain Score 4-5/10 Last Admin: 06/04/20 08:28 Dose: 5 mg Documented by: Prochlorperazine Edisylate (Compazine Iv) 5 mg IV Q4H PRN PRN PRN Reason: Breakthrough nausea/vomiting Psyllium Hydrophilic Mucilloid (Metamucil) 1 packet PO DAILY PRN PRN PRN Reason: Constipation Senna/Docusate Sodium (Senokot-S, Sharon-Colace) 2 tablet PO BID PRN PRN PRN Reason: Constipation Sodium Chloride () 10 - 40 ml IV UD PRN PRN Reason: SALINE FLUSH Temazepam (Restoril) 15 mg PO QHS PRN PRN PRN Reason: INSOMNIA Throat Lozenges (Cepacol Sore Throat Lozenge) 1 lozenge MUCOUS MEM Q2H PRN PRN PRN Reason: SORE THROAT Inpatient E&M: 35113 Disch Hosp
[2020-06-04] MEDS: Ibuprofen 600 MG Tablet PO (13:08)
== END 2020-06-04 13:56 | disposition home or self-care (01) | DRG 572 ==
LOC: ED 20:05 → MS3 22:26
PROVIDERS: Admitting Provider Family Medicine; Emergency Provider Emergency Medicine; PCP Internal Medicine; Visit Provider Internal Medicine
DX: L03.115 Cellulitis of right lower limb (principal); S81.811D Laceration without foreign body, right lower leg, subsequent encounter; W01.198D Fall on same level from slipping, tripping and stumbling with subsequent striking against other object, subsequent encounter; G40.909 Epilepsy, unspecified, not intractable, without status epilepticus; J45.909 Unspecified asthma, uncomplicated; F17.210 Nicotine dependence, cigarettes, uncomplicated; E66.9 Obesity, unspecified; Z68.29 Body mass index [BMI] 29.0-29.9, adult
CPT/HCPCS: 36415; 73590; 73610; 73630; 80048; 80053; 80202; 83605; 83735; 84550; 85025; 87040; 87070; 87075; 87205; 87640; 93971; 99251; 99285; 99406; J7030; J7040; J7050; A4216; G0463; J0295

== ENCOUNTER → 2020-07-29 13:13 | Outpatient (CLI) | payer OTHER, SELFPAY ==
[2020-06-01 23:34] VITALS: BMI 27.6
--- NOTE | 2020-07-29 13:45 | MRI_ITS ---
STUDY: MRI LUMBAR SPINE WITH AND WITHOUT CONTRAST REASON FOR EXAM: Male, 50 years old. Continued LEFT leg pain and weakness S/P MICRODISCECTOMY 04/23/2019 and 11/25/2018 TECHNIQUE: Standardized fat and water weighted pulse sequences were obtained in the sagittal and axial planes. 19ml Dotarem via IV was administered for the contrast portion of the examination. COMPARISON: 10/07/2019 FINDINGS: T12-L1: Normal endplates. Normal disc height, hydration and morphology. Normal bilateral facet joints. Normal central canal and bilateral lateral recesses. Normal bilateral intervertebral neural foramina. Normal lumbar lordosis. Mild dextroscoliosis centered at L2. Normal conus medullaris that terminates at the L1/L2. L1-2: Disc desiccation but no disc protrusion, spinal stenosis, or neural foraminal stenosis. L2-3: Status post left laminectomy. No change in the small central disc protrusion which produces mild spinal stenosis but no neural foraminal stenosis. L3-4: Status post posterior decompression. No change in the 2 mm retrolisthesis of L3 on L4 with a mild broad disc protrusion which produces mild spinal stenosis and mild bilateral neural foraminal stenosis. L4-5: 2 mm of retrolisthesis of L4 and L5 with worsening broad disc protrusion which produces moderate spinal stenosis with a new inferiorly extending left paracentral extrusion with moderate spinal stenosis and the moderate left lateral recess stenosis with abutment of the left L5 nerve root and no neural foraminal stenosis. L5-S1: Normal endplates. Normal disc height, hydration and morphology. Normal bilateral facet joints. Normal central canal and bilateral lateral recesses. Normal bilateral intervertebral neural foramina. Normal visualized sacral ala. Normal visualized paraspinous soft tissue structures. There is no demonstrated abnormal enhancement. MRI/Spine Lumbar W/WO Contrast IMPRESSION: Worsening degenerative disc disease at L4/L5 with moderate left lateral recess stenosis with abutment of the left L5 nerve root. Electronically Signed: Delon Tao MD at 16:53 EST Tel , Service support ,
== END ==
PROVIDERS: PCP Internal Medicine; Referring Provider Orthopaedic Surgery Orthopaedic Surgery of the Spine; Visit Provider Orthopaedic Surgery Orthopaedic Surgery of the Spine
DX: M51.36 Other intervertebral disc degeneration, lumbar region (principal); M48.061 Spinal stenosis, lumbar region without neurogenic claudication; Z98.890 Other specified postprocedural states
CPT/HCPCS: 72158; A9575

== ENCOUNTER → 2020-12-26 17:00 | Outpatient (CLI) | payer OTHER, SELFPAY ==
[2020-06-01 23:34] VITALS: BMI 27.6
--- NOTE | 2020-12-26 17:05 | MRI_ITS ---
EXAM: MR ORBITS WITHOUT AND WITH INTRAVENOUS CONTRAST () CLINICAL INDICATION: VISION LOSS OS -- ATTN CAVERNOUS SINUS TECHNIQUE: Multiplanar and multisequence MR images of the orbits without and with intravenous contrast. This report was created using [employer] report [employer] technology. CONTRAST: IV 20cc Dotarem COMPARISON: None. FINDINGS: ORBITS: Unremarkable. Optic globes are unremarkable.. Unremarkable optic nerve sheath and nerves. Unremarkable intraconal and extraconal spaces. Extra-ocular muscles are unremarkable. OPTIC CHIASM: Unremarkable. Unremarkable chiasm and post chiasmatic tracts. SELLA: Unremarkable. Pituitary gland is normal in size and signal. Normal sella Turcica and suprasellar structures. CAVERNOUS SINUSES: Normal. SINUSES: Unremarkable as visualized. Clear. SOFT TISSUES: Unremarkable. Preseptal and superficial soft tissues are unremarkable. Lacrimal glands are unremarkable. VASCULATURE: Unremarkable. Superior ophthalmic veins are symmetric. NASOPHARYNX: Small TORNWALDT cyst in the midline nasopharynx. MRI/Brain W/WO Contrast IMPRESSION: 1. Normal MRI of the orbits and cavernous sinuses with and without contrast. 2. Normal MRI of the optic nerves, optic chiasm, optic tracts and the remainder of the intracranial visual pathways. Electronically Signed: Maxx Keating MD at 16:06 EDT , Service support ,
== END ==
PROVIDERS: PCP Internal Medicine; Referring Provider Ophthalmology; Visit Provider Ophthalmology
DX: H54.62 Unqualified visual loss, left eye, normal vision right eye (principal)
CPT/HCPCS: 70553; A9575

== ENCOUNTER → 2021-05-22 16:37 | Outpatient (CLI) | payer OTHER, SELFPAY ==
--- NOTE | 2021-05-22 16:46 | MRI_ITS ---
STUDY: MRI LEFT SHOULDER REASON FOR EXAM: Male, 51 years old. LEFT SHOULDER SPRAIN OF ROTATOR CUFF CAPSULE, limited r.o.m TECHNIQUE: Standardized fat and water weighted pulse sequences were obtained in all 3 orthogonal planes. COMPARISON: None. FINDINGS: Mild supraspinatus and infraspinatus tendinosis without tendon tear. Moderate subscapularis tendinosis with minimal deep fiber fraying. Normal teres minor tendon. No muscle atrophy. No significant rotator cuff tear. Mild intracapsular long biceps tendinosis. Small anterior labral tear (axial image 12 series 2). Capsular ligaments intact. Normal rotator cuff interval. Biceps labral anchor intact. Glenohumeral joint fluid physiologic. No subacromial subdeltoid bursitis. Minimal glenohumeral cartilage loss. Mild acromioclavicular joint arthrosis. Anterior interval preserved. No acute fracture, dislocation or bone destruction. Intact coracohumeral and coracoacromial ligaments. Normal quadrilateral space. Normal axillary space. Normal deltoid muscle. Normal trapezius muscle. MRI/Upper Ext Joint Only(Routine) IMPRESSION: Rotator cuff tendinosis with minimal subscapularis deep fiber fraying Mild intracapsular long biceps tendinosis Small anterior labral tear Mild glenohumeral and AC joint arthrosis Electronically Signed: Cirilo Grayson DO at 8:59 EDT Tel , Service support ,
== END ==
PROVIDERS: PCP Internal Medicine; Referring Provider Physician Assistant; Visit Provider Physician Assistant
DX: S43.422D Sprain of left rotator cuff capsule, subsequent encounter (principal)
CPT/HCPCS: 73221

== ENCOUNTER → 2021-09-05 12:19 | Outpatient (CLI) | payer OTHER, SELFPAY ==
[2021-09-05 14:12] LABS: Hematocrit 44.6 % (40-54); Hemoglobin 14.9 g/dL (13.0-16.5); Mean Corp Hgb Conc 33.4 g/dL (32-36); Mean Corpuscular Hgb 33.1 pg (27.0-32.0); Mean Corpuscular Volume 99.1 fL (80-94); Mean Platelet Vol. 9.9 fl (6.2-12.0); Platelet Count 256 K/mm3 (150-450); RBC Distribution Width CV 13.7 % (11.6-14.6); RBC Distribution Width SD 50.4 fl (35.1-43.9); White Blood Count 8.4 K/mm3 (4.4-11.0)
[2021-09-05 14:30] LABS: Anion Gap 6 (5-15); BUN 12 mg/dL (7-18); BUN/Creat Ratio 13.3 RATIO (10-20); Calcium,Total 8.8 mg/dL (8.5-10.1); Chloride 108 mmol/L (98-107); EST Glomerular Filtration Rate 94 mL/min (>60); Est Glom Filt Rate - Afr Amer 114 mL/min (>60); Glucose 80 mg/dL (74-106); Sodium Level 142 mmol/L (136-145)
== END ==
PROVIDERS: PCP Internal Medicine; Referring Provider Orthopaedic Surgery; Visit Provider Orthopaedic Surgery
DX: Z01.812 Encounter for preprocedural laboratory examination (principal)
CPT/HCPCS: 36415; 80048; 85027

== ENCOUNTER → 2021-09-12 09:33 | Outpatient (CLI) | payer OTHER, SELFPAY ==
--- NOTE | 2021-09-12 09:52 | EKG12_ITS ---
Test Reason : PRE OP Blood Pressure : / mmHG Vent. Rate : 096 BPM Atrial Rate : 096 BPM P-R Int : 152 ms QRS Dur : 084 ms QT Int : 316 ms P-R-T Axes : 071 044 063 degrees QTc Int : 399 ms Normal sinus rhythm Normal ECG Confirmed by CLAUDE PERRY, WAQAS ([id number]), graphics editor BERNIE GALAVIZ ([id number]) on 09/12/2021 12:46:03 PM Referred By: Saul Goldman Confirmed By:WAQAS ARCE MD
== END ==
PROVIDERS: PCP Internal Medicine; Referring Provider Physician Assistant; Visit Provider Physician Assistant
DX: Z01.810 Encounter for preprocedural cardiovascular examination (principal)
CPT/HCPCS: 93005